=== PATIENT | female | born 1935 | race Caucasian/White ===

== ENCOUNTER 2024-01-01 13:19 | Inpatient (IN) | payer MEDICARE, MEDICAID, SELFPAY ==
[2024-01-01] VITALS (47 sets, daily range): BP systolic 100–147; BP diastolic 58–84; PULSE 60–89; RESP 15–25; TEMP 36.8–37.1; O2SAT 93–100; BMI 21.6
--- NOTE | ~2024-01-01 | US_ITS ---
US venous doppler [facility] DATE: 01/04/2024 11:43 INDICATION: Left leg swelling and pain TECHNIQUE: Real-time and color flow imaging and Doppler analysis of the veins of both lower extremiti es COMPARISON: None FINDINGS: Right lower extremity The right greater saphenous vein and the right common femoral, femoral, popliteal and posterior and t ibial veins are patent, with spontaneous and phasic flow, normal augmentation and compression. Left lower extremity: There is extensive thrombosis of the left common femoral, femoral, popliteal and posterior tibial and peroneal veins. IMPRESSION: Extensive deep venous thrombosis of the left lower extremity Reviewed, dictated and finalized at [facility]. Reviewed, dictated and finalized at location A.
--- NOTE | ~2024-01-01 | CT_ITS ---
EXAMINATION: CT abdomen pelvis w con DATE: 01/01/2024 17:03 INDICATION: generalized abd pain, diarrhea/ ? bloody TECHNIQUE: Computed tomography (CT) of the abdomen and pelvis was performed with 100 mL Omnipaque-350 intravenous contrast. Automated exposure control and iterative reconstruction technique were employe d. The dose-length product was 203.23 mGy-cm. COMPARISON: 10/25/2017. FINDINGS: Lower thorax: Pulmonary granulomas. Bibasilar scarring. Emphysematous/senescent change. Mitral and co ronary artery calcifications. Liver: Normal. Biliary/Gallbladder: Gallbladder is absent. No bile duct dilation. Pancreas: Mild atrophy. Mildly prominent ducts which is stable finding. No mass. Spleen: Normal. Adrenals:No mass. Kidneys: No suspicious mass, obstructing stone, or hydronephrosis. Bilateral simple cysts and subcent imeter hypodensities that are too small to characterize but also likely represent cysts. GI tract: Moderate distal esophageal and gastric wall edema. No small or large bowel dilation. Normal appendix. Mesentery/Peritoneum: No ascites, mass, or free air. Retroperitoneum: No mass. Atherosclerotic abdominal aortic and/or arterial calcifications. Pelvis: Mild urinary bladder wall thickening. Absent uterus. Soft Tissues: Soft tissues and body wall unremarkable. Bones: No acute osseous finding. IMPRESSION: Moderate esophagitis/gastritis. Bladder wall thickening as can be seen with cystitis. Correlate with urinalysis. Reviewed, dictated and finalized at location [facility]. IMPRESSION: Moderate esophagitis/gastritis. Bladder wall thickening as can be seen with cystitis. Correlate with urinalysis .
--- NOTE | ~2024-01-01 | XR_ITS ---
EXAMINATION: XR chest 1V portable Exam Date/Time: 01/01/2024 16:40 CDT HISTORY: ftt, ams Comparison: None. RESULT: Lines, tubes, and devices: None. Lungs and pleura: Senescent/emphysematous change. Right lower lung calcified granuloma. Cardiomediastinal silhouette: Atherosclerotic aortic calcifications. Significant aortic unfolding. E levated cardiac apex which can be seen with hypertension. Other: No acute osseous or upper abdominal finding. IMPRESSION: No acute cardiopulmonary process. Reviewed, dictated and finalized at location [facility].
--- NOTE | ~2024-01-01 | CT_ITS ---
EXAMINATION: CT brain wo con DATE: 01/01/2024 18:40 INDICATION: ams . TECHNIQUE: Computed tomography (CT) of the head was performed without intravenous contrast. The mA wa s adjusted according to patient size. Iterative reconstruction technique was employed. The dose-lengt h product was 756.67 mGy-cm. COMPARISON: None. FINDINGS: No acute intracranial hemorrhage or extra-axial fluid collection. No hydrocephalus, mass, or herniation. No acute ischemic infarct. Unremarkable dural venous sinus attenuation. No acute osseous abnormality. The aerated spaces are clear. Moderate atrophy and chronic white matter change. Atherosclerotic intracranial calcification. Bilater al lens replacements. Residual contrast enhancement. IMPRESSION: No acute intracranial process. Reviewed, dictated and finalized at location [facility].
--- NOTE | 2024-01-01 13:28 | ECG_ITS ---
Measurements Intervals [place] Rate: 73 P: -29 LA: 128 QRS: -59 QRSD: 85 T: 53 QT: 400 QTc: 442 Interpretive Statements SINUS RHYTHM LEFT AXIS DEVIATION INFERIOR INFARCT, AGE INDETERMINATE BASELINE ARTIFACT- I, III, AVR, AVL ABNORMAL ECG NO PREVIOUS ECG AVAILABLE FOR COMPARISON Electronically Signed On 01-01-2024 13:42:06 CDT by Nasir Kessler D.O.
[2024-01-01 14:01] LABS: Basophils Absolute Auto 0.1 K/mm3 (0.0-0.1); Basophils Percent Auto 0.6 % (0.2-1.2); Eosinophils Absolute Auto 0.1 K/mm3 (0-0.3); Hematocrit 49.4 % (37.0-47.0); Immature Granulocyte Absolute 0.03 K/mm3 (0.00-0.031); Immature Granulocyte Percent A 0.3 % (0-0.5); Lymphocytes Absolute Auto 1.78 K/mm3 (0.9-3.2); Lymphocytes Percent Auto 17.6 % (18.3-44.2); Mean Corpuscular HGB Conc 32.4 g/dl (32-36); Mean Corpuscular Hemoglobin 29.9 pg (26-34); Mean Corpuscular Volume 92.3 fl (80-100); Mean Platelet Volume 9.7 fl (7.4-10.4); Monocytes Absolute Auto 0.8 K/mm3 (0.1-0.6); Monocytes Percent Auto 7.5 % (2.6-8.5); Neutrophils Absolute Auto 7.4 K/mm3 (1.3-6.7); Platelet Count Result 230 k/mm3 (150-375); Red Blood Count 5.35 M/mm3 (4.2-5.4); Red Cell Distribution Width 14.9 % (11.5-14.5); White Blood Count 10.1 K/mm3 (4.5-10.0)
[2024-01-01 14:04] LABS: INR 1.2; Partial Thromboplastin Time 28.1 Seconds (22.3-36.8); Prothrombin Time 15.5 Seconds (11.1-14.7)
[2024-01-01 14:05] LABS: Alanine Aminotransferase 14 U/L (6-35); Albumin Level 4.1 g/dL (3.5-5.1); Alkaline Phosphatase 76 U/L (38-126); Anion Gap 9 mmol/L (4-12); Aspartate Amino Transferase 22 U/L (14-36); Blood Urea Nitrogen 53 mg/dL (7-17); Calcium 9.2 mg/dL (8.4-10.2); Carbon Dioxide 29 mmol/L (22-30); Chloride 93 mmol/L (98-107); Estimated CRCL calculation 29 ml/min; Estimated Glomerular Filt Rate 52; Glucose 109 mg/dL (65-110); Potassium 3.4 mmol/L (3.4-5.0); Sodium 131 mmol/L (137-145)
[2024-01-01 14:21] LABS: Appearance Urine Clear (Clear); Bacteria Urine None Seen /hpf; Bilirubin Urine Negative (Negative); Blood Urine Negative (Negative); Color Urine Dark Yellow (Yellow); Glucose Urine UA Negative (Negative); Ketones Urine 1+ mg/dL (Negative); Leukocyte Esterase Ur 2+ LEU/UL (Negative); Nitrate Urine Negative (Negative); Protein Urine Negative (Negative); RBC Urine 0-2 /hpf (0-2); Specific Grav Ur 1.021 (1.001-1.035); Squamous Epithelial Cell Urine None Seen /hpf (Few); WBC Urine 21-50 /hpf (0-3)
[2024-01-01 14:35] LABS: Add Urine Microscopic? YES
--- NOTE | 2024-01-01 16:29 | ED.AMS ---
HPI - Altered Mental Status General Chief Complaint: Altered Mental Status Stated Complaint: Altered Mental x2 Weeks Time Seen by Provider: 01/01/24 15:48 Source: patient and family ( Son Janes and daughter Kailey) Limitations: altered mental status History of Present Illness HPI narrative: This an 88-year-old female who presents with concern by family for altered mental status for the past 2 weeks. Patient lives by herself and previously had been independent of ADLs. The past 2 weeks however she has become more confused Per son and daughter. Daughter states patient has been unable to get around in the last several days because of the extreme generalized weakness. She has had decreased p.o. intake as well. Patient previously never ambulated with an assistive device but patient's daughter did purchase a walker from a [employer] store earlier this week to see if it would help; patient hasn't used it. patient had 2 episodes of diarrhea this morning and daughter states that there was dark blood in the stool. No cough. She is also complaining of back pain. Related Data Allergies Allergy/AdvReac Type Severity Reaction Status Date / Time Penicillins Allergy Severe hives Verified 01/01/24 13:27 codeine AdvReac Unknown nausea Verified 01/01/24 13:27 [facility] Social History Social History (Updated 01/01/24 @ 20:34 by Meredith Martinez MD) Living arrangements: alone Exam Narrative: GENERAL: Well-appearing, well-nourished, and in no acute distress. HEAD: Normocephalic, atraumatic. EYES: Non injected, non icteric ENT: Nares clear, no rhinorrhea or epistaxis. BACK: No tenderness to palpation midline of cervical, thoracic, or lumbar spine; no bony step offs. NECK: Supple. CHEST: No respiratory distress. HEART: Regular rate and rhythm. . ABDOMEN: Soft, nondistended. Patient initially flinches when touched but states she wasn't prepared. No further indication of pain. No TTP , rigidity/guarding. rectal exam is performed which does demonstrate loose thin stool. There is also some mucosa that appears to be protruding but easily goes back into the vault; suspect mild rectal prolapse versus hemorrhoid. FOBT negative. No masses. EXTREMITIES: No edema. SKIN: Warm, dry, no rash. NEURO: No focal deficits. Alert and oriented To self and location but confused about the year (says 4....24... ) and cannot recall the address where she lives. PSYCH: Normal mood and affect. Course Vital Signs Vital signs: Vital Signs Temperature 98.2 F 01/01/24 13:18 Pulse Rate 68 01/01/24 13:18 Respiratory Rate 16 01/01/24 13:18 Blood Pressure 116/73 01/01/24 13:18 Pulse Oximetry 95 01/01/24 13:18 Oxygen Delivery Room Air 01/01/24 13:18 Temperature 98.2 F 01/01/24 13:18 Pulse Rate 66 01/01/24 20:31 Respiratory Rate 17 01/01/24 20:31 Blood Pressure 109/71 01/01/24 20:30 Pulse Oximetry 95 01/01/24 20:31 Oxygen Delivery Room Air 01/01/24 13:18 MDM - Altered Mental Status MDM Narrative Medical decision making narrative: Patient presents with generalized weakness and altered mental status. She has had an inability to get around her house where she lives by herself. She has a decreased p.o. intake and a few episodes of diarrhea that were possibly bloody earlier. In the emergency department she is afebrile with vital signs within normal limits. Patient is complaining of being thirsty. IV fluids ordered. FOBT negative though with questionable mild protrusion of rectum that easily reinserts, no masses. urinalysis concerning for a possible urinary tract infection given pyuria and leukocyte esterase positive. Antibiotics ordered. Rest of workup is generally unremarkable however patient and family are still concerned about her degree of weakness and inability to get around at home. Patient will benefit from PT/ OT evaluation with consideration of possible placement for a safe disposition/dis
[2024-01-01 17:14] LABS: Creatine Kinase 41 U/L (30-135); Magnesium 2.5 mg/dL (1.6-2.3)
[2024-01-01 17:28] LABS: Influenza A QL RT-PCR Negative (Negative); Influenza B QL RT-PCR Negative (Negative); RSV RNA, RT-PCR Negative (Negative); SARS-CoV-2 RNA PCR Negative (Negative)
[2024-01-01] MEDS: SODIUM CHLORIDE 0.9% IV 1,000 ML 999 ML IV CONT (17:31)
[2024-01-01] MEDS: NITROFURANTOIN MONOHYD MACROCR 100 MG CAP PO (17:31)
[2024-01-01] MEDS: ACETAMINOPHEN 500 MG TABLET 1000 MG PO (17:31)
--- NOTE | 2024-01-01 21:20 | ADMGEN ---
This patient, Gela Sampson, was admitted to Medical Room 342-01. Patient/family oriented to hospital policies and general routines including ID bracelet, bed and alarms, visiting hours, pain management, procedures, bathroom and other care routines, personal items, smoking policy, room service/diet, and visiting hours. Information on how to activate the Rapid Response Team has been discussed. Patient/Family are encouraged to report perceived risks to care and to ask questions if they do not understand what they are told or what they should do.
--- NOTE | 2024-01-01 21:48 | PC.NURSE ---
COMPLETED PT ADMISSION TO BEST OF MY ABILITY. PT IS POOR HISTORIAN AND FAMILY DOES NOT KNOW ANYTHING ABOUT PT MEDICAL HISTORY OR MEDIATIONS.
[2024-01-01] MEDS: LACTATED RINGERS 1,000 ML 125 ML IV CONT (22:15)
[2024-01-02] MEDS: ACETAMINOPHEN 325 MG TABLET 650 MG PO (03:24)
--- NOTE | 2024-01-02 05:48 | PM.IMHP ---
H&P: HPI History of Present Illness Date/Time: 01/02/24 05:48 Chief Complaint: Increased weakness and confusion Narrative: 88-year-old female with a past medical history of dementia who presented to hospital from home in the care of her family members who was brought in for increased confusion and weakness for the last 2 weeks. At the time of my evaluation the patient was able to tell me her name and that she thought she was in [facility]. Otherwise she is completely confused and thought the year was 1973. She is able to tell me that clearly her mind isn't working await should but she cannot give me any other details. She denies any other symptoms. She states that she must have had a really bad illness that was worse than a cold that happened last night but it must of resolved because she feels much better. She is fluent and conversational despite being confused. according to the ER physicians documentation the patient had been independent in all her activities of daily living until the last 2 weeks. Now over the last several days she has become so weak that she has been having difficulty ambulating. the daughter had reported to the ER staff that the patient had had 2 diarrheal bowel movements that were dark in color in may have had some blood mixed in. However patient's occult stool on rectal exam was negative for blood. The ER provider did note that the patient did have a small amount of rectal prolapse at the time of exam. CT of the abdomen pelvis demonstrated moderate esophagitis/ gastritis and bladder wall thickening that can be seen was cystitis. CT of the head was negative for acute process. Chest x-ray was unremarkable. Patient did have an elevated hemoglobin and other clinical findings suspicious for dehydration. The patient was admitted in this setting for IV fluid hydration and physical therapy evaluation. Unfortunately the patient is so confused that she cannot provide any of her past medical history in the family does not know the patient's past medical history and does not know if patient had any home medications. External medication reconciliation was blank. Review of Systems Review of Systems: ROS unobtainable: Yes unobtainable due to mental status PMFSH Past Medical History Medical History (Updated 01/02/24 @ 16:00 by Madalyn Ma APRN) Medical history unknown Surgical History Surgical History (Updated 01/02/24 @ 08:46 by Taylor Byrd DO) Surgical history unknown Family History Family History (Updated 01/01/24 @ 21:51 by Juani Brown RN) Other Unknown family medical history Social History Social History (Updated 01/01/24 @ 20:34 by Meredith Martinez MD) Smoking status: Former smoker Alcohol intake: never Substance use: never Do You Feel Safe in your Home?: Yes Lack of Transportation: No Lack of Food: Never True Current Housing: I Have Housing Concerned About Future Housing: No Difficulty Paying Gas/Electric Bills: No Difficulty Paying for Meds: No Currently Unemployed: No Education: High School Diploma/GED Difficulty w/ Childcare or Family Care: No Living arrangements: alone Spiritual care concerns: No Meds Home Medications and Allergies Home Medications Medication Instructions Recorded Confirmed Type acetaminophen 325 mg capsule 650 mg PO Q4H 01/01/24 01/01/24 History (Tylenol) Allergies Allergy/AdvReac Type Severity Reaction Status Date / Time Penicillins Allergy Severe hives Verified 01/01/24 13:27 codeine AdvReac Unknown nausea Verified 01/01/24 13:27 Vital Signs Vital Signs - 24 hr 01/01/24 13:18 01/01/24 13:26 01/01/24 13:27 Temperature 98.2 F Pulse Rate 68 70 73 Respiratory Rate 16 18 17 Blood Pressure 116/73 116/73 Pulse Oximetry 95 95 97 Oxygen Delivery Room Air 01/01/24 13:30 01/01/24 13:32 01/01/24 13:45 Temperature Pulse Rate 74 77 74 Respiratory Rate 19 25
[2024-01-02 06:00] VITALS: BP 110/60; PULSE 63; RESP 20; TEMP 36.6; O2SAT 98
[2024-01-02] MEDS: LACTATED RINGERS 1,000 ML 125 ML IV CONT (06:57)
[2024-01-02 08:25] LABS: Basophils Absolute Auto 0.1 K/mm3 (0.0-0.1); Basophils Percent Auto 0.9 % (0.2-1.2); Eosinophils Absolute Auto 0.2 K/mm3 (0-0.3); Eosinophils Percent Auto 2.7 % (0-4.4); Hematocrit 45.4 % (37.0-47.0); Hemoglobin 14.4 g/dL (12.0-15.0); Immature Granulocyte Absolute 0.04 K/mm3 (0.00-0.031); Immature Granulocyte Percent A 0.5 % (0-0.5); Immature Platelet Fraction Pct 4.2 % (0.9-11.2); Lymphocytes Absolute Auto 1.38 K/mm3 (0.9-3.2); Lymphocytes Percent Auto 17.1 % (18.3-44.2); Mean Corpuscular HGB Conc 31.7 g/dl (32-36); Mean Corpuscular Hemoglobin 30.1 pg (26-34); Mean Corpuscular Volume 94.8 fl (80-100); Mean Platelet Volume 9.8 fl (7.4-10.4); Monocytes Absolute Auto 0.7 K/mm3 (0.1-0.6); Monocytes Percent Auto 8.7 % (2.6-8.5); Neutrophils Absolute Auto 5.7 K/mm3 (1.3-6.7); Neutrophils Percent Auto 70.1 % (45.5-73.1); Platelet Count Result 170 k/mm3 (150-375); Red Blood Count 4.79 M/mm3 (4.2-5.4); Red Cell Distribution Width 14.7 % (11.5-14.5); White Blood Count 8.1 K/mm3 (4.5-10.0)
[2024-01-02 08:44] LABS: Anion Gap 5 mmol/L (4-12); Blood Urea Nitrogen 36 mg/dL (7-17); Calcium 8.4 mg/dL (8.4-10.2); Carbon Dioxide 30 mmol/L (22-30); Chloride 95 mmol/L (98-107); Estimated CRCL calculation 40 ml/min; Estimated Glomerular Filt Rate > 60; Glucose 92 mg/dL (65-110); Potassium 3.7 mmol/L (3.4-5.0); Sodium 130 mmol/L (137-145)
[2024-01-02 13:00] VITALS: BMI 21.6
[2024-01-02 15:22] VITALS: BP 128/80; PULSE 76; RESP 19; TEMP 36.8; O2SAT 97
--- NOTE | 2024-01-02 15:57 | PM.IMPN ---
Progress Note: A&P Assessment and Plan (1) Esophagitis with gastritis: Code(s): K29.70 - Gastritis, unspecified, without bleeding; K20.90 - Esophagitis, unspecified without bleeding Status: Acute Assessment and Plan: patient reports 2 bouts of diarrhea at home will order stool sample if continues IVF PRN antiemetics (2) Elevated hemoglobin: Code(s): D58.2 - Other hemoglobinopathies Status: Acute (3) Abnormal finding on urinalysis: Code(s): R82.90 - Unspecified abnormal findings in urine Status: Acute Assessment and Plan: minimal leukocytosis with leukocyte esterase and elevated wbc's in her urine UA culture pending Macrobid PO due to PCN allergy (4) Confusion: Code(s): R41.0 - Disorientation, unspecified Status: Chronic Assessment and Plan: known dementia head CT negative for acute process (5) Generalized weakness: Code(s): R53.1 - Weakness Status: Acute Assessment and Plan: CXR negative mildly low serum sodium possibly dehydration, IVF PT/OT ordered for evaluation Subjective Date/time seen: 01/02/24 15:57 Interval history: Patient is pleasantly confused this morning. Alert to self only, in no acute distress. She cannot tell me why she is here. She denies any pain, chest pain or SOB. Will treat for UTI while care coordination speaks with family. Patient may need placement, PT/OT evals ordered. Review of Systems Review of Systems: ROS unobtainable: Yes unobtainable due to mental status Exam Narrative: GENERAL: Well-appearing, well-nourished, and in no acute distress. HEAD: Normocephalic, atraumatic. EYES: PERRLA, EOMI NECK: Supple. CHEST: Lungs clear to auscultation, No respiratory distress. HEART: RRR ABDOMEN: Soft, nondistended, non-tender. BS present. EXTREMITIES: No edema. SKIN: Warm, dry, no rash. NEURO: No focal deficits. Alert and oriented x1 PSYCH: Normal mood and affect. Objective Data Vital Signs Vital Signs: Vital Signs - 24 hr 01/01/24 16:06 01/01/24 16:15 01/01/24 16:16 Temperature Pulse Rate 89 Respiratory Rate 18 Blood Pressure 101/58 L 120/69 Pulse Oximetry 93 95 93 Oxygen Delivery 01/01/24 16:30 01/01/24 16:31 01/01/24 17:02 Temperature Pulse Rate 81 81 81 Respiratory Rate 19 15 21 H Blood Pressure 115/65 Pulse Oximetry 93 94 98 Oxygen Delivery 01/01/24 17:15 01/01/24 17:30 01/01/24 17:35 Temperature Pulse Rate 71 74 77 Respiratory Rate 18 16 19 Blood Pressure 119/78 Pulse Oximetry 96 96 Oxygen Delivery 01/01/24 17:45 01/01/24 17:46 01/01/24 18:00 Temperature Pulse Rate 68 68 66 Respiratory Rate 17 22 H 19 Blood Pressure 115/70 Pulse Oximetry 97 96 96 Oxygen Delivery 01/01/24 18:01 01/01/24 18:15 01/01/24 18:16 Temperature Pulse Rate 65 64 75 Respiratory Rate 18 18 18 Blood Pressure 105/71 115/70 Pulse Oximetry 96 95 96 Oxygen Delivery 01/01/24 18:38 01/01/24 18:45 01/01/24 19:00 Temperature Pulse Rate 75 68 67 Respiratory Rate 17 18 17 Blood Pressure Pulse Oximetry 95 96 97 Oxygen Delivery 01/01/24 19:15 01/01/24 19:35 01/01/24 19:45 Temperature Pulse Rate 71 65 63 Respiratory Rate 22 H 18 19 Blood Pressure 103/63 103/58 L Pulse Oximetry 98 97 Oxygen Delivery 01/01/24 20:16 01/01/24 20:30 01/01/24 20:31 Temperature Pulse Rate 60 68 66 Respiratory Rate 17 20 17 Blood Pressure 115/70 109/71 Pulse Oximetry 100 96 95 Oxygen Delivery 01/01/24 22:00 01/02/24 06:00 01/02/24 13:37 Temperature 98.7 F 97.9 F Pulse Rate 70 63 Respiratory Rate 20 20 Blood Pressure 147/78 H 110/60 Pulse Oximetry 96 98 Oxygen Delivery Room Air 01/02/24 15:22 Temperature 98.3 F Pulse Rate 76 Respiratory Rate 19 Blood Pressure 128/80 Pulse Oximetry 97 Oxygen Delivery Intake/Output Intake/Output: Intake & Output 12/30/23 12/31/23
[2024-01-02] MEDS: NITROFURANTOIN MONOHYD MACROCR 100 MG CAP PO (21:35)
[2024-01-02 22:40] VITALS: BP 130/86; PULSE 75; RESP 20; TEMP 36.4; O2SAT 98
[2024-01-03] MEDS: LACTATED RINGERS 1,000 ML 125 ML IV CONT (02:35)
[2024-01-03 06:00] VITALS: BP 141/89; PULSE 89; RESP 16; TEMP 36.3; O2SAT 95
[2024-01-03 06:14] LABS: Basophils Percent Auto 0.4 % (0.2-1.2); Eosinophils Absolute Auto 0.2 K/mm3 (0-0.3); Eosinophils Percent Auto 1.9 % (0-4.4); Hematocrit 46.1 % (37.0-47.0); Hemoglobin 14.7 g/dL (12.0-15.0); Immature Granulocyte Absolute 0.03 K/mm3 (0.00-0.031); Immature Granulocyte Percent A 0.3 % (0-0.5); Lymphocytes Absolute Auto 1.34 K/mm3 (0.9-3.2); Lymphocytes Percent Auto 14.5 % (18.3-44.2); Mean Corpuscular HGB Conc 31.9 g/dl (32-36); Mean Corpuscular Hemoglobin 29.8 pg (26-34); Mean Corpuscular Volume 93.3 fl (80-100); Mean Platelet Volume 9.7 fl (7.4-10.4); Monocytes Absolute Auto 0.8 K/mm3 (0.1-0.6); Monocytes Percent Auto 8.6 % (2.6-8.5); Neutrophils Absolute Auto 6.9 K/mm3 (1.3-6.7); Neutrophils Percent Auto 74.3 % (45.5-73.1); Platelet Count Result 149 k/mm3 (150-375); Red Blood Count 4.94 M/mm3 (4.2-5.4); Red Cell Distribution Width 14.6 % (11.5-14.5); White Blood Count 9.3 K/mm3 (4.5-10.0)
[2024-01-03 06:36] LABS: Anion Gap 5 mmol/L (4-12); Blood Urea Nitrogen 17 mg/dL (7-17); Calcium 8.4 mg/dL (8.4-10.2); Carbon Dioxide 28 mmol/L (22-30); Chloride 97 mmol/L (98-107); Estimated CRCL calculation 46 ml/min; Estimated Glomerular Filt Rate > 60; Glucose 98 mg/dL (65-110); Potassium 2.9 mmol/L (3.4-5.0); Sodium 130 mmol/L (137-145)
[2024-01-03] MEDS: NITROFURANTOIN MONOHYD MACROCR 100 MG CAP PO ×2 (09:32→20:39)
--- NOTE | 2024-01-03 12:57 | PM.IMPN ---
Progress Note: A&P Assessment and Plan (1) Confusion: Code(s): R41.0 - Disorientation, unspecified Status: Chronic Assessment and Plan: 01/03/2024: Head CT negative for any acute intracranial process Patient has underlying dementia Continue neuro checks (2) Hyponatremia: Code(s): E87.1 - Hypo-osmolality and hyponatremia Status: Acute Assessment and Plan: 01/03/2024: Sodium level currently is 130 The low sodium could potentially be the cause of her altered mental status Can be due to tea and toast versus hypovolemia from diarrhea Will put patient on fluid restriction of 1500 ml per day Discontinue LR IV fluids Will check urine sodium, urine osmolarity, serum osmolarity, and cortisol Continue to trend Consider nephrology consult sodium level does not improve (3) Left leg swelling: Code(s): M79.89 - Other specified soft tissue disorders Status: Acute Assessment and Plan: 01/03/2024: Patient complaining of pain and the back of her left calf, there is notable 2+ pitting edema to lower extremity Order placed for bilateral venous ultrasound to rule out DVT Patient is not currently on any anticoagulation (4) Esophagitis with gastritis: Code(s): K29.70 - Gastritis, unspecified, without bleeding; K20.90 - Esophagitis, unspecified without bleeding Status: Acute Assessment and Plan: 12/24/2023: CT of abdomen pelvis showing moderate esophagitis/gastritis, bladder wall thickening as can be seen with cystitis Continue antiemetics Patient reported 2 bouts of diarrhea at home (5) Diarrhea: Qualifiers: Diarrhea type: unspecified type Qualified Code(s): R19.7 - Diarrhea, unspecified Code(s): R19.7 - Diarrhea, unspecified Status: Acute Assessment and Plan: See above (6) Abnormal finding on urinalysis: Code(s): R82.90 - Unspecified abnormal findings in urine Status: Acute Assessment and Plan: 01/03/2024: UA showing 1+ ketones, 2+ leukocytes, 21-50 urine wbc's Urine culture was negative on final read (7) Generalized weakness: Code(s): R53.1 - Weakness Status: Acute Assessment and Plan: 01/03/2024: Will order PT and OT Time Spent With Patient Time with patient: 25 - 35 minutes Subjective Date/time seen: 01/03/24 12:57 Interval history: This is an 88-year-old female who presented to the hospital on 01/02/2024 for evaluation of weakness and confusion. Workup in the hospital included a chest x-ray which was negative. Abdomen pelvis CT which showed moderate esophagitis/gastritis, bladder wall thickening as seen with cystitis. Head CT was negative for any acute intracranial process. Initial labs revealed white blood cell count of 10.1, sodium 131, chloride 93, EGFR 52, magnesium 2.5, total bili 2.0, liver enzymes were normal. UA was obtained and showed 1+ urine ketones, 2+ leukocyte, 21-50 urine wbc's. Urine culture was obtained and was negative on final read. Patient was given Zofran and Tylenol in the ED. On examination today patient is confused, sitting on the side of the bed. Patient endorses pain and swelling in her left lower extremity. On exam her left lower extremity is swollen with 2+ pitting edema, she is complaining of pain in the back of her calf. We will go ahead and get an ultrasound of her lower extremities to rule out any DVT. Labs today revealed showing sodium of 130, potassium of 2.9, chloride 97, otherwise unremarkable. Patient was given 80 mEq of potassium over the course of today. Review of Systems Review of Systems: All systems reviewed & are unremarkable except as noted in HPI and below Constitutional: Constitutional: Reports as per HPI and Reports no additional constitutional complaints Eyes: Eyes: Reports as per HPI and Reports no additional eye complaints ENT: Reports system reviewed and no additional complaints, except as documented and Re
[2024-01-03 14:00] VITALS: BP 134/71; PULSE 85; RESP 16; TEMP 37; O2SAT 95
--- NOTE | 2024-01-03 14:58 | PCPTNOTE ---
Treatment not completed at this time. Per RN, the patient has swelling in her lower extremity and she thinks it would be best to keep her in bed at this time. Will continue per PT plan of care.
[2024-01-03] MEDS: POTASSIUM CHLORIDE 20 MEQ ER TABLET 40 MEQ PO (16:51)
[2024-01-03 19:21] LABS: Sodium Urine Random 16 meq/L
[2024-01-03] MEDS: POTASSIUM CHLORIDE 20 MEQ PACKET (FOR LIQUID) 40 MEQ PO (20:40)
[2024-01-03 20:58] VITALS: BP 153/76; PULSE 79; RESP 18; TEMP 36.9; O2SAT 95
[2024-01-03] MEDS: ACETAMINOPHEN 325 MG TABLET 650 MG PO (23:53)
[2024-01-04] MEDS: ACETAMINOPHEN 325 MG TABLET 650 MG PO (05:32)
[2024-01-04 06:49] VITALS: BP 148/73; PULSE 81; RESP 20; TEMP 36.8; O2SAT 98
[2024-01-04 09:21] LABS: Hematocrit 44.6 % (37.0-47.0); Hemoglobin 14.4 g/dL (12.0-15.0); Mean Corpuscular HGB Conc 32.3 g/dl (32-36); Mean Corpuscular Volume 92.9 fl (80-100); Mean Platelet Volume 9.9 fl (7.4-10.4); Platelet Count Result 144 k/mm3 (150-375); Red Cell Distribution Width 14.7 % (11.5-14.5); White Blood Count 7.6 K/mm3 (4.5-10.0)
[2024-01-04 09:31] LABS: Alanine Aminotransferase 13 U/L (6-35); Albumin Level 3.3 g/dL (3.5-5.1); Alkaline Phosphatase 62 U/L (38-126); Anion Gap 1 mmol/L (4-12); Aspartate Amino Transferase 20 U/L (14-36); Blood Urea Nitrogen 13 mg/dL (7-17); Calcium 8.4 mg/dL (8.4-10.2); Carbon Dioxide 35 mmol/L (22-30); Chloride 95 mmol/L (98-107); Estimated CRCL calculation 46 ml/min; Estimated Glomerular Filt Rate > 60; Glucose 103 mg/dL (65-110); Potassium 3.1 mmol/L (3.4-5.0); Sodium 131 mmol/L (137-145)
[2024-01-04] MEDS: APIXABAN 5 MG TABLET 10 MG PO (10:10)
[2024-01-04] MEDS: NITROFURANTOIN MONOHYD MACROCR 100 MG CAP PO ×2 (10:10→21:16)
[2024-01-04] MEDS: POTASSIUM CHLORIDE 20 MEQ PACKET (FOR LIQUID) 40 MEQ PO (11:26)
--- NOTE | 2024-01-04 11:28 | PM.IMPN ---
Progress Note: A&P Assessment and Plan (1) Deep vein thrombosis (DVT) of femoral vein of left lower extremity: Code(s): I82.412 - Acute embolism and thrombosis of left femoral vein Status: Acute Assessment and Plan: 01/03: Noted left lower extremity swelling ultrasound was ordered yesterday but not obtained. This morning nursing staff stated this was worse. Initiated patient on Eliquis 10 mg twice daily expecting ultrasound tomorrow. However, ultrasound was completed showing extensive clot burden left lower extremity from the common femoral down through the popliteal, posterior tibialis and peroneal veins. Discussed with Dr. Painting and since patient can be on anticoagulation IVC filter is not recommended at this time. (2) Hypokalemia: Code(s): E87.6 - Hypokalemia Status: Acute Assessment and Plan: Potassium level continues to decline were stable low even after significant supplementation. Level again today is 3.1. Ordered 40 mEq oral and 40 mEq IV. (3) Confusion: Code(s): R41.0 - Disorientation, unspecified Status: Chronic Assessment and Plan: 01/03/2024: Head CT negative for any acute intracranial process Patient has underlying dementia Continue neuro checks 01/03: Confusion seems to be baseline??? Known underlying dementia. Seems less confused with family present. (4) Hyponatremia: Code(s): E87.1 - Hypo-osmolality and hyponatremia Status: Acute Assessment and Plan: 01/03/2024: Sodium level currently is 130 The low sodium could potentially be the cause of her altered mental status Can be due to tea and toast versus hypovolemia from diarrhea Will put patient on fluid restriction of 1500 ml per day Discontinue LR IV fluids Will check urine sodium, urine osmolarity, serum osmolarity, and cortisol Continue to trend Consider nephrology consult sodium level does not improve 01/03: Stable sodium level 131 today (5) Esophagitis with gastritis: Code(s): K29.70 - Gastritis, unspecified, without bleeding; K20.90 - Esophagitis, unspecified without bleeding Status: Acute Assessment and Plan: 01/03/2024: CT of abdomen pelvis showing moderate esophagitis/gastritis, bladder wall thickening as can be seen with cystitis Continue antiemetics Patient reported 2 bouts of diarrhea at home 01/03: No signs of GI bleeding at this time. Initiate anti coagulation for left lower extremity DVT (6) Diarrhea: Qualifiers: Diarrhea type: unspecified type Qualified Code(s): R19.7 - Diarrhea, unspecified Code(s): R19.7 - Diarrhea, unspecified Status: Acute Assessment and Plan: See above (7) Abnormal finding on urinalysis: Code(s): R82.90 - Unspecified abnormal findings in urine Status: Acute Assessment and Plan: 01/03/2024: UA showing 1+ ketones, 2+ leukocytes, 21-50 urine wbc's Urine culture was negative on final read 01/03: Though culture was negative patient's UA was convincing for UTI and she had confusion that is seems to be improving after antibiotics. (8) Generalized weakness: Code(s): R53.1 - Weakness Status: Acute Assessment and Plan: 01/03/2024: Will order PT and OT Time Spent With Patient Time with patient: Greater than 35 minutes Subjective Date/time seen: 01/04/24 11:28 Interval history: 01/02: This is an 88-year-old female who presented to the hospital on 01/02/2024 for evaluation of weakness and confusion. Workup in the hospital included a chest x-ray which was negative. Abdomen pelvis CT which showed moderate esophagitis/gastritis, bladder wall thickening as seen with cystitis. Head CT was negative for any acute intracranial process. Initial labs revealed white blood cell count of 10.1, sodium 131, chloride 93, EGFR 52, magnesium 2.5, total bili 2.0, liver enzymes were normal. UA was obtained and showed 1+ urine ketones, 2+ leukocyte, 21-5
[2024-01-04 12:24] VITALS: O2SAT 97
--- NOTE | 2024-01-04 14:45 | PCOTNOTE ---
Pt is not appropriate for Occupational Therapy treatment today due to recent DVT finding of LLE and has not been on heparin drip for 24 hrs yet. Will continue per poc duration/frequency when medically appropriate.
[2024-01-04 14:55] VITALS: BP 123/68; PULSE 74; RESP 16; TEMP 36.1; O2SAT 97
--- NOTE | 2024-01-04 14:55 | PCPTNOTE ---
Treatment not completed at this time due to recent DVT finding of the left LE. Will continue per PT plan of care when appropriate.
[2024-01-04 17:24] LABS: Basophils Percent Auto 0.5 % (0.2-1.2); Eosinophils Absolute Auto 0.2 K/mm3 (0-0.3); Eosinophils Percent Auto 2.8 % (0-4.4); Hematocrit 43.8 % (37.0-47.0); Hemoglobin 14.1 g/dL (12.0-15.0); Immature Granulocyte Absolute 0.03 K/mm3 (0.00-0.031); Immature Granulocyte Percent A 0.4 % (0-0.5); Lymphocytes Absolute Auto 1.38 K/mm3 (0.9-3.2); Lymphocytes Percent Auto 17.4 % (18.3-44.2); Mean Corpuscular HGB Conc 32.2 g/dl (32-36); Mean Corpuscular Hemoglobin 29.6 pg (26-34); Mean Platelet Volume 9.7 fl (7.4-10.4); Monocytes Absolute Auto 0.6 K/mm3 (0.1-0.6); Monocytes Percent Auto 7.7 % (2.6-8.5); Neutrophils Absolute Auto 5.7 K/mm3 (1.3-6.7); Neutrophils Percent Auto 71.2 % (45.5-73.1); Platelet Count Result 144 k/mm3 (150-375); Red Blood Count 4.76 M/mm3 (4.2-5.4); Red Cell Distribution Width 14.8 % (11.5-14.5); White Blood Count 7.9 K/mm3 (4.5-10.0)
[2024-01-04 17:37] LABS: INR 1.3
[2024-01-04 17:38] LABS: Partial Thromboplastin Time 36.1 Seconds (22.3-36.8)
[2024-01-04] MEDS: HEPARIN SODIUM 5,000 UNITS/ML VIAL 4500 UNITS IV PUSH (17:53)
[2024-01-04] MEDS: HEPARIN SOD/D5W 100 UNITS/ML 25,000 UNITS/250 ML BAG 10 UNITS IV CONT (17:57)
[2024-01-04 19:57] VITALS: BP 126/77; PULSE 81; RESP 20; TEMP 36.3; O2SAT 97
[2024-01-04 20:00] VITALS: PULSE 81; RESP 20; O2SAT 97
[2024-01-05 00:49] LABS: Partial Thromboplastin Time 75.8 Seconds (22.3-36.8)
[2024-01-05] MEDS: ACETAMINOPHEN 325 MG TABLET 650 MG PO ×2 (02:35→21:08)
[2024-01-05 06:17] LABS: Hematocrit 43.9 % (37.0-47.0); Hemoglobin 14.1 g/dL (12.0-15.0); Mean Corpuscular HGB Conc 32.1 g/dl (32-36); Mean Corpuscular Hemoglobin 29.9 pg (26-34); Mean Corpuscular Volume 93.2 fl (80-100); Mean Platelet Volume 10.1 fl (7.4-10.4); Platelet Count Result 184 k/mm3 (150-375); Red Blood Count 4.71 M/mm3 (4.2-5.4); Red Cell Distribution Width 14.8 % (11.5-14.5); White Blood Count 9.2 K/mm3 (4.5-10.0)
[2024-01-05 06:26] LABS: Alanine Aminotransferase 13 U/L (6-35); Albumin Level 3.2 g/dL (3.5-5.1); Alkaline Phosphatase 71 U/L (38-126); Anion Gap 2 mmol/L (4-12); Aspartate Amino Transferase 22 U/L (14-36); Bilirubin,Total 1.1 mg/dL (0.2-1.3); Blood Urea Nitrogen 9 mg/dL (7-17); Calcium 8.4 mg/dL (8.4-10.2); Carbon Dioxide 30 mmol/L (22-30); Chloride 98 mmol/L (98-107); Estimated CRCL calculation 55 ml/min; Estimated Glomerular Filt Rate > 60; Glucose 116 mg/dL (65-110); Magnesium 1.9 mg/dL (1.6-2.3); Potassium 3.8 mmol/L (3.4-5.0); Sodium 130 mmol/L (137-145)
--- NOTE | 2024-01-05 07:18 | PC.NURSE ---
Pt pulled 3 IV overnight. Dayana. [employer] made aware. No access at this time.
--- NOTE | 2024-01-05 07:35 | P.PNIM_ITS ---
Progress Note: A&P Assessment and Plan (1) Deep vein thrombosis (DVT) of femoral vein of left lower extremity: Code(s): I82.412 - Acute embolism and thrombosis of left femoral vein Status: Acute Assessment and Plan: 01/03: Noted left lower extremity swelling ultrasound was ordered yesterday but not obtained. This morning nursing staff stated this was worse. Initiated patient on Eliquis 10 mg twice daily expecting ultrasound tomorrow. However, ultrasound was completed showing extensive clot burden left lower extremity from the common femoral down through the popliteal, posterior tibialis and peroneal veins. Discussed with Dr. Painting and since patient can be on anticoagulation IVC filter is not recommended at this time. 01/04: * Switching patient to therapeutic Lovenox instead of heparin infusion as patient is still confused and pulled out 3 IV's overnight. * Keep INR between 2-3 * Plan to transition to Eliquis once therapeutic. (2) Hypokalemia: Code(s): E87.6 - Hypokalemia Status: Acute Assessment and Plan: 01/03: Potassium level continues to decline were stable low even after significant supplementation. Level again today is 3.1. Ordered 40 mEq oral and 40 mEq IV. 01/04: * K+ 3.8 * No preplacement required (3) Confusion: Code(s): R41.0 - Disorientation, unspecified Status: Chronic Assessment and Plan: 01/03/2024: * Head CT negative for any acute intracranial process * Patient has underlying dementia * Continue neuro checks 01/03: Confusion seems to be baseline??? Known underlying dementia. Seems less confused with family present. 01/04: * No change * Continue neuro checks. (4) Hyponatremia: Code(s): E87.1 - Hypo-osmolality and hyponatremia Status: Acute Assessment and Plan: 01/03/2024: * Sodium level currently is 130 * The low sodium could potentially be the cause of her altered mental status * Can be due to tea and toast versus hypovolemia from diarrhea * Will put patient on fluid restriction of 1500 ml per day * Discontinue LR IV fluids * Will check urine sodium, urine osmolarity, serum osmolarity, and cortisol * Continue to trend * Consider nephrology consult sodium level does not improve 01/03: Stable sodium level 131 today 01/04: * Na+ 130 * Continue fluid restriction * Urine sodium and serum osmolarity pending. * Cortisol level 17.00 (5) Esophagitis with gastritis: Code(s): K29.70 - Gastritis, unspecified, without bleeding; K20.90 - Esophagitis, unspecified without bleeding Status: Acute Assessment and Plan: 01/03/2024: * CT of abdomen pelvis showing moderate esophagitis/gastritis, bladder wall thickening as can be seen with cystitis * Continue antiemetics * Patient reported 2 bouts of diarrhea at home 01/03: No signs of GI bleeding at this time. Initiate anti coagulation for left lower extremity DVT 01/04: * No change to current treatment plan (6) Diarrhea: Qualifiers: Diarrhea type: unspecified type Qualified Code(s): R19.7 - Diarrhea, unspecified Code(s): R19.7 - Diarrhea, unspecified Status: Acute Assessment and Plan: See above (7) Abnormal finding on urinalysis: Code(s): R82.90 - Unspecified abnormal findings in urine Status: Acute Assessment and Plan: 01/03/2024: * UA showing 1+ ketones, 2+ leukocytes, 21-50 urine wbc's * Urine culture was negative on final read 01/03: Though culture was negative patient's UA was convincing for
--- NOTE | 2024-01-05 07:35 | PM.IMPN ---
Progress Note: A&P Assessment and Plan (1) Deep vein thrombosis (DVT) of femoral vein of left lower extremity: Code(s): I82.412 - Acute embolism and thrombosis of left femoral vein Status: Acute Assessment and Plan: 01/03: Noted left lower extremity swelling ultrasound was ordered yesterday but not obtained. This morning nursing staff stated this was worse. Initiated patient on Eliquis 10 mg twice daily expecting ultrasound tomorrow. However, ultrasound was completed showing extensive clot burden left lower extremity from the common femoral down through the popliteal, posterior tibialis and peroneal veins. Discussed with Dr. Painting and since patient can be on anticoagulation IVC filter is not recommended at this time. 01/04: Switching patient to therapeutic Lovenox instead of heparin infusion as patient is still confused and pulled out 3 IV's overnight. Keep INR between 2-3 Plan to transition to Eliquis once therapeutic. (2) Hypokalemia: Code(s): E87.6 - Hypokalemia Status: Acute Assessment and Plan: 01/03: Potassium level continues to decline were stable low even after significant supplementation. Level again today is 3.1. Ordered 40 mEq oral and 40 mEq IV. 01/04: K+ 3.8 No preplacement required (3) Confusion: Code(s): R41.0 - Disorientation, unspecified Status: Chronic Assessment and Plan: 01/03/2024: Head CT negative for any acute intracranial process Patient has underlying dementia Continue neuro checks 01/03: Confusion seems to be baseline??? Known underlying dementia. Seems less confused with family present. 01/04: No change Continue neuro checks. (4) Hyponatremia: Code(s): E87.1 - Hypo-osmolality and hyponatremia Status: Acute Assessment and Plan: 01/03/2024: Sodium level currently is 130 The low sodium could potentially be the cause of her altered mental status Can be due to tea and toast versus hypovolemia from diarrhea Will put patient on fluid restriction of 1500 ml per day Discontinue LR IV fluids Will check urine sodium, urine osmolarity, serum osmolarity, and cortisol Continue to trend Consider nephrology consult sodium level does not improve 01/03: Stable sodium level 131 today 01/04: Na+ 130 Continue fluid restriction Urine sodium and serum osmolarity pending. Cortisol level 17.00 (5) Esophagitis with gastritis: Code(s): K29.70 - Gastritis, unspecified, without bleeding; K20.90 - Esophagitis, unspecified without bleeding Status: Acute Assessment and Plan: 01/03/2024: CT of abdomen pelvis showing moderate esophagitis/gastritis, bladder wall thickening as can be seen with cystitis Continue antiemetics Patient reported 2 bouts of diarrhea at home 01/03: No signs of GI bleeding at this time. Initiate anti coagulation for left lower extremity DVT 01/04: No change to current treatment plan (6) Diarrhea: Qualifiers: Diarrhea type: unspecified type Qualified Code(s): R19.7 - Diarrhea, unspecified Code(s): R19.7 - Diarrhea, unspecified Status: Acute Assessment and Plan: See above (7) Abnormal finding on urinalysis: Code(s): R82.90 - Unspecified abnormal findings in urine Status: Acute Assessment and Plan: 01/03/2024: UA showing 1+ ketones, 2+ leukocytes, 21-50 urine wbc's Urine culture was negative on final read 01/03: Though culture was negative patient's UA was convincing for UTI and she had confusion that is seems to be improving after antibiotics. 01/04: no change to current treatment plan (8) Generalized weakness: Code(s): R53.1 - Weakness Status: Acute Assessment and Plan: 01/03/2024: Will order PT and OT 01/04: No change to current treatment plan Time Spent With Patient Time with patient: 25 - 35 minutes Subjective Date/time seen: 01/05/24 07:35 Interval history: 01/02:
[2024-01-05] MEDS: NITROFURANTOIN MONOHYD MACROCR 100 MG CAP PO ×2 (09:41→21:08)
[2024-01-05] MEDS: ENOXAPARIN 60 MG/0.6 ML SYRINGE 55 MG SUB-Q ×2 (09:41→21:08)
--- NOTE | 2024-01-05 13:07 | PCPTNOTE ---
Patient unable to be seen for PT this date due to patient agitated and combative this date.
[2024-01-05 20:00] VITALS: PULSE 81; RESP 20; O2SAT 97
[2024-01-06 06:02] LABS: Hematocrit 45.9 % (37.0-47.0); Hemoglobin 14.5 g/dL (12.0-15.0); Mean Corpuscular HGB Conc 31.6 g/dl (32-36); Mean Corpuscular Volume 94.8 fl (80-100); Mean Platelet Volume 9.1 fl (7.4-10.4); Platelet Count Result 198 k/mm3 (150-375); Red Blood Count 4.84 M/mm3 (4.2-5.4); Red Cell Distribution Width 14.9 % (11.5-14.5); White Blood Count 6.2 K/mm3 (4.5-10.0)
[2024-01-06 06:16] LABS: Alanine Aminotransferase 14 U/L (6-35); Albumin Level 3.4 g/dL (3.5-5.1); Alkaline Phosphatase 69 U/L (38-126); Anion Gap 3 mmol/L (4-12); Aspartate Amino Transferase 23 U/L (14-36); Bilirubin,Total 1.1 mg/dL (0.2-1.3); Blood Urea Nitrogen 8 mg/dL (7-17); Calcium 8.5 mg/dL (8.4-10.2); Carbon Dioxide 32 mmol/L (22-30); Chloride 97 mmol/L (98-107); Estimated CRCL calculation 55 ml/min; Estimated Glomerular Filt Rate > 60; Glucose 103 mg/dL (65-110); Potassium 3.4 mmol/L (3.4-5.0); Sodium 132 mmol/L (137-145)
[2024-01-06] MEDS: NITROFURANTOIN MONOHYD MACROCR 100 MG CAP PO ×2 (08:37→20:23)
[2024-01-06] MEDS: ENOXAPARIN 60 MG/0.6 ML SYRINGE 55 MG SUB-Q ×2 (08:37→20:26)
[2024-01-06 12:23] LABS: INR 1.2; Prothrombin Time 15.4 Seconds (11.1-14.7)
[2024-01-06 14:00] VITALS: BP 120/77; PULSE 98; RESP 18; TEMP 36.9; O2SAT 99
--- NOTE | 2024-01-06 14:07 | P.PNIM_ITS ---
Progress Note: A&P Assessment and Plan (1) Deep vein thrombosis (DVT) of femoral vein of left lower extremity: Code(s): I82.412 - Acute embolism and thrombosis of left femoral vein Status: Acute Assessment and Plan: 01/03: Noted left lower extremity swelling ultrasound was ordered yesterday but not obtained. This morning nursing staff stated this was worse. Initiated patient on Eliquis 10 mg twice daily expecting ultrasound tomorrow. However, ultrasound was completed showing extensive clot burden left lower extremity from the common femoral down through the popliteal, posterior tibialis and peroneal veins. Discussed with Dr. Painting and since patient can be on anticoagulation IVC filter is not recommended at this time. 01/04: * Switching patient to therapeutic Lovenox instead of heparin infusion as p atient is still confused and pulled out 3 IV's overnight. * Keep INR between 2-3 * Plan to transition to Eliquis once therapeutic. 01/05: * Switching to Eliquis today * Patient will be discharged on Eliquis * Awaiting authorization for [facility] transfer (2) Hypokalemia: Code(s): E87.6 - Hypokalemia Status: Acute Assessment and Plan: 01/03: Potassium level continues to decline were stable low even after significant supplementation. Level again today is 3.1. Ordered 40 mEq oral and 40 mEq IV. 01/04: * K+ 3.8 * No preplacement required 01/05: * Remains stable no replacement required (3) Confusion: Code(s): R41.0 - Disorientation, unspecified Status: Chronic Assessment and Plan: 01/03/2024: * Head CT negative for any acute intracranial process * Patient has underlying dementia * Continue neuro checks 01/03: Confusion seems to be baseline??? Known underlying dementia. Seems less confused with family present. 01/04: * No change * Continue neuro checks. 2: * No change (4) Hyponatremia: Code(s): E87.1 - Hypo-osmolality and hyponatremia Status: Acute Assessment and Plan: 01/03/2024: * Sodium level currently is 130 * The low sodium could potentially be the cause of her altered mental status * Can be due to tea and toast versus hypovolemia from diarrhea * Will put patient on fluid restriction of 1500 ml per day * Discontinue LR IV fluids * Will check urine sodium, urine osmolarity, serum osmolarity, and cortisol * Continue to trend * Consider nephrology consult sodium level does not improve 01/03: Stable sodium level 131 today 01/04: * Na+ 130 * Continue fluid restriction * Urine sodium and serum osmolarity pending. * Cortisol level 17.00 01/05: * Sodium levels 132 * Will continue with fluid restriction * Labs still pending (5) Esophagitis with gastritis: Code(s): K29.70 - Gastritis, unspecified, without bleeding; K20.90 - Esophagitis, unspecified without bleeding Status: Acute Assessment and Plan: 01/03/2024: * CT of abdomen pelvis showing moderate esophagitis/gastritis, bladder wall thickening as can be seen with cystitis * Continue antiemetics * Patient reported 2 bouts of diarrhea at home 01/03: No signs of GI bleeding at this time. Initiate anti coagulation for left lower extremity DVT 01/04: * No change to current treatment plan (6) Diarrhea: Qualifiers: Diarrhea type: unspecified type Qualified Code(s): R19.7 - Diarrhea, unspecified Code(s): R19.7 - Diarrhea, unspecified Status: Acute Assessment and Plan: See above (7) Abnormal
--- NOTE | 2024-01-06 14:07 | PM.IMPN ---
Progress Note: A&P Assessment and Plan (1) Deep vein thrombosis (DVT) of femoral vein of left lower extremity: Code(s): I82.412 - Acute embolism and thrombosis of left femoral vein Status: Acute Assessment and Plan: 01/03: Noted left lower extremity swelling ultrasound was ordered yesterday but not obtained. This morning nursing staff stated this was worse. Initiated patient on Eliquis 10 mg twice daily expecting ultrasound tomorrow. However, ultrasound was completed showing extensive clot burden left lower extremity from the common femoral down through the popliteal, posterior tibialis and peroneal veins. Discussed with Dr. Painting and since patient can be on anticoagulation IVC filter is not recommended at this time. 01/04: Switching patient to therapeutic Lovenox instead of heparin infusion as patient is still confused and pulled out 3 IV's overnight. Keep INR between 2-3 Plan to transition to Eliquis once therapeutic. 2: Switching to Eliquis today Patient will be discharged on Eliquis Awaiting authorization for [facility] transfer (2) Hypokalemia: Code(s): E87.6 - Hypokalemia Status: Acute Assessment and Plan: 01/03: Potassium level continues to decline were stable low even after significant supplementation. Level again today is 3.1. Ordered 40 mEq oral and 40 mEq IV. 01/04: K+ 3.8 No preplacement required 01/05: Remains stable no replacement required (3) Confusion: Code(s): R41.0 - Disorientation, unspecified Status: Chronic Assessment and Plan: 01/03/2024: Head CT negative for any acute intracranial process Patient has underlying dementia Continue neuro checks 01/03: Confusion seems to be baseline??? Known underlying dementia. Seems less confused with family present. 01/04: No change Continue neuro checks. 2: No change (4) Hyponatremia: Code(s): E87.1 - Hypo-osmolality and hyponatremia Status: Acute Assessment and Plan: 01/03/2024: Sodium level currently is 130 The low sodium could potentially be the cause of her altered mental status Can be due to tea and toast versus hypovolemia from diarrhea Will put patient on fluid restriction of 1500 ml per day Discontinue LR IV fluids Will check urine sodium, urine osmolarity, serum osmolarity, and cortisol Continue to trend Consider nephrology consult sodium level does not improve 01/03: Stable sodium level 131 today 01/04: Na+ 130 Continue fluid restriction Urine sodium and serum osmolarity pending. Cortisol level 17.00 01/05: Sodium levels 132 Will continue with fluid restriction Labs still pending (5) Esophagitis with gastritis: Code(s): K29.70 - Gastritis, unspecified, without bleeding; K20.90 - Esophagitis, unspecified without bleeding Status: Acute Assessment and Plan: 01/03/2024: CT of abdomen pelvis showing moderate esophagitis/gastritis, bladder wall thickening as can be seen with cystitis Continue antiemetics Patient reported 2 bouts of diarrhea at home 01/03: No signs of GI bleeding at this time. Initiate anti coagulation for left lower extremity DVT 01/04: No change to current treatment plan (6) Diarrhea: Qualifiers: Diarrhea type: unspecified type Qualified Code(s): R19.7 - Diarrhea, unspecified Code(s): R19.7 - Diarrhea, unspecified Status: Acute Assessment and Plan: See above (7) Abnormal finding on urinalysis: Code(s): R82.90 - Unspecified abnormal findings in urine Status: Acute Assessment and Plan: 01/03/2024: UA showing 1+ ketones, 2+ leukocytes, 21-50 urine wbc's Urine culture was negative on final read 01/03: Though culture was negative patient's UA was convincing for UTI and she had confusion that is seems to be improving after antibiotics. 01/04: no change to current treatment plan (8) Generalized weakness: Code(s): Chele
[2024-01-06 22:00] VITALS: BP 152/71; PULSE 83; RESP 16; TEMP 36.2; O2SAT 99
[2024-01-07 05:57] VITALS: BP 145/76; PULSE 79; RESP 16; TEMP 36.4; O2SAT 96
[2024-01-07 06:53] LABS: Hematocrit 44.2 % (37.0-47.0); Mean Corpuscular HGB Conc 31.7 g/dl (32-36); Mean Corpuscular Hemoglobin 29.9 pg (26-34); Mean Corpuscular Volume 94.2 fl (80-100); Platelet Count Result 223 k/mm3 (150-375); Red Blood Count 4.69 M/mm3 (4.2-5.4); Red Cell Distribution Width 15.2 % (11.5-14.5); White Blood Count 6.1 K/mm3 (4.5-10.0)
[2024-01-07 07:03] LABS: Alanine Aminotransferase 14 U/L (6-35); Albumin Level 3.3 g/dL (3.5-5.1); Alkaline Phosphatase 64 U/L (38-126); Anion Gap 0 mmol/L (4-12); Aspartate Amino Transferase 21 U/L (14-36); Blood Urea Nitrogen 10 mg/dL (7-17); Calcium 8.6 mg/dL (8.4-10.2); Carbon Dioxide 34 mmol/L (22-30); Chloride 97 mmol/L (98-107); Estimated CRCL calculation 46 ml/min; Estimated Glomerular Filt Rate > 60; Glucose 102 mg/dL (65-110); Magnesium 1.8 mg/dL (1.6-2.3); Potassium 3.7 mmol/L (3.4-5.0); Sodium 131 mmol/L (137-145)
--- NOTE | 2024-01-07 08:13 | PCPTNOTE ---
Patient refused treatment this session. Patient reported she could not work with PT because of her heart. Patient's heart rate 72 and O2 SATs 96%. Reassured patient her heart was okay and the importance of therapy. Patient continued to refuse. RN aware.
[2024-01-07 12:29] LABS: Osmolality, Urine 386 mOsm/kg (50-1200)
--- NOTE | 2024-01-07 12:45 | P.PNIM_ITS ---
Progress Note: A&P Assessment and Plan (1) Deep vein thrombosis (DVT) of femoral vein of left lower extremity: Code(s): I82.412 - Acute embolism and thrombosis of left femoral vein Status: Acute Assessment and Plan: 01/03: Noted left lower extremity swelling ultrasound was ordered yesterday but not obtained. This morning nursing staff stated this was worse. Initiated patient on Eliquis 10 mg twice daily expecting ultrasound tomorrow. However, ultrasound was completed showing extensive clot burden left lower extremity from the common femoral down through the popliteal, posterior tibialis and peroneal veins. Discussed with Dr. Painting and since patient can be on anticoagulation IVC filter is not recommended at this time. 01/04: * Switching patient to therapeutic Lovenox instead of heparin infusion as p atshelley is still confused and pulled out 3 IV's overnight. * Keep INR between 2-3 * Plan to transition to Eliquis once therapeutic. 01/05: * Switching to Eliquis today * Patient will be discharged on Eliquis * Awaiting authorization for [facility] transfer 01/06: * On eliquis * Case management working on outpatient knee (2) Hypokalemia: Code(s): E87.6 - Hypokalemia Status: Acute Assessment and Plan: 01/03: Potassium level continues to decline were stable low even after significant supplementation. Level again today is 3.1. Ordered 40 mEq oral and 40 mEq IV. 01/04: * K+ 3.8 * No preplacement required 01/05: * Remains stable no replacement required (3) Confusion: Code(s): R41.0 - Disorientation, unspecified Status: Chronic Assessment and Plan: 01/03/2024: * Head CT negative for any acute intracranial process * Patient has underlying dementia * Continue neuro checks 01/03: Confusion seems to be baseline??? Known underlying dementia. Seems less confused with family present. 01/04: * No change * Continue neuro checks. 01/05: * No change (4) Hyponatremia: Code(s): E87.1 - Hypo-osmolality and hyponatremia Status: Acute Assessment and Plan: 01/03/2024: * Sodium level currently is 130 * The low sodium could potentially be the cause of her altered mental status * Can be due to tea and toast versus hypovolemia from diarrhea * Will put patient on fluid restriction of 1500 ml per day * Discontinue LR IV fluids * Will check urine sodium, urine osmolarity, serum osmolarity, and cortisol * Continue to trend * Consider nephrology consult sodium level does not improve 01/03: Stable sodium level 131 today 01/04: * Na+ 130 * Continue fluid restriction * Urine sodium and serum osmolarity pending. * Cortisol level 17.00 01/05: * Sodium levels 132 * Will continue with fluid restriction * Labs still pending 01/07/24: * Sodium level 131 * Continue with fluid restriction (5) Esophagitis with gastritis: Code(s): K29.70 - Gastritis, unspecified, without bleeding; K20.90 - Esophagitis, unspecified without bleeding Status: Acute Assessment and Plan: 01/03/2024: * CT of abdomen pelvis showing moderate esophagitis/gastritis, bladder wall thickening as can be seen with cystitis * Continue antiemetics * Patient reported 2 bouts of diarrhea at home 01/03: No signs of GI bleeding at this time. Initiate anti coagulation for left lower extremity DVT 01/04: * No change to current treatment plan (6) Diarrhea: Qualifiers: Diarrhea type: unspecified type Qualified Code(s): R19.7 - Diarrh
--- NOTE | 2024-01-07 12:45 | PM.IMPN ---
Progress Note: A&P Assessment and Plan (1) Deep vein thrombosis (DVT) of femoral vein of left lower extremity: Code(s): I82.412 - Acute embolism and thrombosis of left femoral vein Status: Acute Assessment and Plan: 01/03: Noted left lower extremity swelling ultrasound was ordered yesterday but not obtained. This morning nursing staff stated this was worse. Initiated patient on Eliquis 10 mg twice daily expecting ultrasound tomorrow. However, ultrasound was completed showing extensive clot burden left lower extremity from the common femoral down through the popliteal, posterior tibialis and peroneal veins. Discussed with Dr. Painting and since patient can be on anticoagulation IVC filter is not recommended at this time. 01/04: Switching patient to therapeutic Lovenox instead of heparin infusion as patient is still confused and pulled out 3 IV's overnight. Keep INR between 2-3 Plan to transition to Eliquis once therapeutic. 01/05: Switching to Eliquis today Patient will be discharged on Eliquis Awaiting authorization for [place] transfer 01/06: On eliquis Case management working on outpatient knee (2) Hypokalemia: Code(s): E87.6 - Hypokalemia Status: Acute Assessment and Plan: 01/03: Potassium level continues to decline were stable low even after significant supplementation. Level again today is 3.1. Ordered 40 mEq oral and 40 mEq IV. 01/04: K+ 3.8 No preplacement required 01/05: Remains stable no replacement required (3) Confusion: Code(s): R41.0 - Disorientation, unspecified Status: Chronic Assessment and Plan: 01/03/2024: Head CT negative for any acute intracranial process Patient has underlying dementia Continue neuro checks 01/03: Confusion seems to be baseline??? Known underlying dementia. Seems less confused with family present. 01/04: No change Continue neuro checks. 01/05: No change (4) Hyponatremia: Code(s): E87.1 - Hypo-osmolality and hyponatremia Status: Acute Assessment and Plan: 01/03/2024: Sodium level currently is 130 The low sodium could potentially be the cause of her altered mental status Can be due to tea and toast versus hypovolemia from diarrhea Will put patient on fluid restriction of 1500 ml per day Discontinue LR IV fluids Will check urine sodium, urine osmolarity, serum osmolarity, and cortisol Continue to trend Consider nephrology consult sodium level does not improve 01/03: Stable sodium level 131 today 01/04: Na+ 130 Continue fluid restriction Urine sodium and serum osmolarity pending. Cortisol level 17.00 01/05: Sodium levels 132 Will continue with fluid restriction Labs still pending 01/07/24: Sodium level 131 Continue with fluid restriction (5) Esophagitis with gastritis: Code(s): K29.70 - Gastritis, unspecified, without bleeding; K20.90 - Esophagitis, unspecified without bleeding Status: Acute Assessment and Plan: 01/03/2024: CT of abdomen pelvis showing moderate esophagitis/gastritis, bladder wall thickening as can be seen with cystitis Continue antiemetics Patient reported 2 bouts of diarrhea at home 01/03: No signs of GI bleeding at this time. Initiate anti coagulation for left lower extremity DVT 01/04: No change to current treatment plan (6) Diarrhea: Qualifiers: Diarrhea type: unspecified type Qualified Code(s): R19.7 - Diarrhea, unspecified Code(s): R19.7 - Diarrhea, unspecified Status: Acute Assessment and Plan: See above (7) Abnormal finding on urinalysis: Code(s): R82.90 - Unspecified abnormal findings in urine Status: Acute Assessment and Plan: 01/03/2024: UA showing 1+ ketones, 2+ leukocytes, 21-50 urine wbc's Urine culture was negative on final read 01/03: Though culture was negative patient's UA was convincing for UTI and she had confusion that is seems t
--- NOTE | 2024-01-07 14:05 | PCPTNOTE ---
Attempted to see patient for PT, however patient declined.
[2024-01-07] MEDS: NITROFURANTOIN MONOHYD MACROCR 100 MG CAP PO (20:06)
[2024-01-07] MEDS: APIXABAN 5 MG TABLET 10 MG PO (20:06)
[2024-01-07 21:54] VITALS: BP 140/68; PULSE 93; RESP 22; TEMP 36.6; O2SAT 96
[2024-01-08] MEDS: ACETAMINOPHEN 325 MG TABLET 650 MG PO ×3 (01:11→17:51)
[2024-01-08] MEDS: ONDANSETRON HCL ODT 4 MG TABLET PO (02:45)
[2024-01-08 06:00] VITALS: BP 144/78; PULSE 87; RESP 20; TEMP 36.6; O2SAT 97
[2024-01-08 06:03] LABS: Hematocrit 40.9 % (37.0-47.0); Hemoglobin 12.9 g/dL (12.0-15.0); Mean Corpuscular HGB Conc 31.5 g/dl (32-36); Mean Corpuscular Hemoglobin 29.7 pg (26-34); Mean Corpuscular Volume 94.2 fl (80-100); Mean Platelet Volume 8.9 fl (7.4-10.4); Platelet Count Result 222 k/mm3 (150-375); Red Blood Count 4.34 M/mm3 (4.2-5.4); Red Cell Distribution Width 15.1 % (11.5-14.5); White Blood Count 5.9 K/mm3 (4.5-10.0)
[2024-01-08 06:19] LABS: Alanine Aminotransferase 16 U/L (6-35); Albumin Level 3.1 g/dL (3.5-5.1); Alkaline Phosphatase 61 U/L (38-126); Anion Gap 2 mmol/L (4-12); Aspartate Amino Transferase 35 U/L (14-36); Bilirubin,Total 0.9 mg/dL (0.2-1.3); Blood Urea Nitrogen 11 mg/dL (7-17); Calcium 8.4 mg/dL (8.4-10.2); Carbon Dioxide 33 mmol/L (22-30); Chloride 96 mmol/L (98-107); Estimated CRCL calculation 40 ml/min; Estimated Glomerular Filt Rate > 60; Glucose 99 mg/dL (65-110); Magnesium 1.9 mg/dL (1.6-2.3); Potassium 3.6 mmol/L (3.4-5.0); Sodium 131 mmol/L (137-145)
[2024-01-08] MEDS: NITROFURANTOIN MONOHYD MACROCR 100 MG CAP PO ×2 (08:34→20:01)
[2024-01-08] MEDS: APIXABAN 5 MG TABLET 10 MG PO ×2 (08:34→20:01)
--- NOTE | 2024-01-08 08:41 | PM.IMPN ---
Progress Note: A&P Assessment and Plan (1) Deep vein thrombosis (DVT) of femoral vein of left lower extremity: Code(s): I82.412 - Acute embolism and thrombosis of left femoral vein Status: Acute (2) Hypokalemia: Code(s): E87.6 - Hypokalemia Status: Acute (3) Confusion: Code(s): R41.0 - Disorientation, unspecified Status: Chronic (4) Hyponatremia: Code(s): E87.1 - Hypo-osmolality and hyponatremia Status: Acute (5) Esophagitis with gastritis: Code(s): K29.70 - Gastritis, unspecified, without bleeding; K20.90 - Esophagitis, unspecified without bleeding Status: Acute (6) Diarrhea: Qualifiers: Diarrhea type: unspecified type Qualified Code(s): R19.7 - Diarrhea, unspecified Code(s): R19.7 - Diarrhea, unspecified Status: Acute (7) Abnormal finding on urinalysis: Code(s): R82.90 - Unspecified abnormal findings in urine Status: Acute (8) Generalized weakness: Code(s): R53.1 - Weakness Status: Acute Plan This is an 88-year-old female who presented to the hospital on 01/02/2024 for evaluation of weakness and confusion. Workup in the hospital included a chest x-ray which was negative. Abdomen pelvis CT which showed moderate esophagitis/gastritis, bladder wall thickening as seen with cystitis. Head CT was negative for any acute intracranial process. Initial labs revealed white blood cell count of 10.1, sodium 131, chloride 93, EGFR 52, magnesium 2.5, total bili 2.0, liver enzymes were normal. UA was obtained and showed 1+ urine ketones, 2+ leukocyte, 21-50 urine wbc's suggestive of UTI. Urine culture with mixed genital manuela. Patient remains to be confused. Patient endorsed pain and swelling in her left lower extremity. Venous ultrasound came back positive for left lower extremity DVT from common femoral vein down were. Anticoagulation was started. CT evidence of moderate esophagitis/gastritis. Place on PPI PT OT independently ambulatory Confusion? Baseline lives alone at home. Mild hyponatremia Possible UTI urine culture with genital manuela on nitrofurantoin Generalized weakness DVT prophylaxis on Eliquis code status do not resuscitate Subjective Date/time seen: 01/08/24 08:41 Interval history: This is an 88-year-old female who presented to the hospital on 01/02/2024 for evaluation of weakness and confusion. Workup in the hospital included a chest x-ray which was negative. Abdomen pelvis CT which showed moderate esophagitis/gastritis, bladder wall thickening as seen with cystitis. Head CT was negative for any acute intracranial process. Initial labs revealed white blood cell count of 10.1, sodium 131, chloride 93, EGFR 52, magnesium 2.5, total bili 2.0, liver enzymes were normal. UA was obtained and showed 1+ urine ketones, 2+ leukocyte, 21-50 urine wbc's suggestive of UTI. Urine culture with mixed genital manuela. Patient remains to be confused. Patient endorsed pain and swelling in her left lower extremity. Venous ultrasound came back positive for left lower extremity DVT from common femoral vein down were. Anticoagulation was started. CT evidence of moderate esophagitis/gastritis. Place on PPI PT OT independently ambulatory Confusion? Baseline lives alone at home. Mild hyponatremia Possible UTI urine culture with genital manuela on nitrofurantoin Generalized weakness DVT prophylaxis on Eliquis code status do not resuscitate Review of Systems Review of Systems: All systems reviewed & are unremarkable except as noted in HPI and below Exam Narrative: General: In no acute distress, well nourished Head: atraumatic, no encephalopathy Eyes: EOMI, PERRLA, sclera clear ENT: moist mucous membranes, nasal passages clear Neck: supple, no JVD, no adenopathy, trachea midline Cardiac: Normal S1 and S2. No murmur, gallops or friction rubs, peripheral pulses intact. Respiratory: Lungs clear to auscultation, no adventit
[2024-01-08] MEDS: PANTOPRAZOLE 40 MG TABLET PO (12:27)
[2024-01-08 14:00] VITALS: BP 114/78; PULSE 83; RESP 16; TEMP 36.5; O2SAT 98
[2024-01-08 21:06] VITALS: O2SAT 95
[2024-01-08] MEDS: MELATONIN 3 MG TABLET PO (21:28)
[2024-01-08 22:00] VITALS: BP 135/66; PULSE 86; RESP 20; TEMP 36.5; O2SAT 98
[2024-01-09 06:00] VITALS: BP 131/70; PULSE 80; RESP 20; TEMP 36.5; O2SAT 98
[2024-01-09 06:06] LABS: Hematocrit 41.5 % (37.0-47.0); Mean Corpuscular HGB Conc 31.3 g/dl (32-36); Mean Corpuscular Volume 95.6 fl (80-100); Mean Platelet Volume 8.6 fl (7.4-10.4); Platelet Count Result 223 k/mm3 (150-375); Red Blood Count 4.34 M/mm3 (4.2-5.4); Red Cell Distribution Width 15.1 % (11.5-14.5); White Blood Count 5.2 K/mm3 (4.5-10.0)
[2024-01-09 06:32] LABS: Alanine Aminotransferase 22 U/L (6-35); Albumin Level 3.4 g/dL (3.5-5.1); Alkaline Phosphatase 61 U/L (38-126); Anion Gap 4 mmol/L (4-12); Aspartate Amino Transferase 40 U/L (14-36); Bilirubin,Total 0.9 mg/dL (0.2-1.3); Blood Urea Nitrogen 10 mg/dL (7-17); Calcium 8.9 mg/dL (8.4-10.2); Carbon Dioxide 30 mmol/L (22-30); Chloride 96 mmol/L (98-107); Estimated CRCL calculation 40 ml/min; Estimated Glomerular Filt Rate > 60; Glucose 103 mg/dL (65-110); Potassium 3.1 mmol/L (3.4-5.0); Sodium 130 mmol/L (137-145)
[2024-01-09] MEDS: PANTOPRAZOLE 40 MG TABLET PO (09:53)
[2024-01-09] MEDS: NITROFURANTOIN MONOHYD MACROCR 100 MG CAP PO (09:53)
[2024-01-09] MEDS: APIXABAN 5 MG TABLET 10 MG PO (09:53)
[2024-01-09] MEDS: POTASSIUM CHLORIDE 20 MEQ ER TABLET 40 MEQ PO (09:55)
--- NOTE | 2024-01-09 12:29 | PCNFU ---
Nutrition Follow-Up Complete: Potential for inadequate oral intake related to loss of appetite as evidenced by report of 2-13 lb weight loss Goal: adequate PO intake at least 75% of meals and supplements Pt current nutrition is regular diet, 1500mL fluid restriction and Ensure Compact BID. Nutrition recommendation: Continue with a regular diet, 1500mL fluid and Ensure Compact BID. Will order a weight check. Encouraged patient to eat well of small/frequent meals and of ONS. Replace K+. Last recorded weight is 55.4 kg. No new weights. Bowel Motility: BM /, abdomen WNL Labs Reviewed: Na 130, K+ 3.1 Meds Noted: Eliquis, Tylenol, Zofran, Protonix Skin: No pressure ulcer Additional Notes: Patient reports a fair appetite. She reports she is not eating as much as she used to. She reports intermittent nausea/vomiting (this am) and occasional diarrhea, no constipation. Denies chewing/swallowing problems. Patient not sure of a UBW. No new weights since admission. Edema: +2 (left leg), +3 (left foot). Intakes 25-100% x 3 (4/4), 20-50% x 3 (4/3), 50-75% x 3 (4/2). Monitoring intakes, weights, labs, supplement tolerance, plan of care Follow up in 7 days
--- NOTE | 2024-01-09 14:23 | PM.DS ---
DS: Admitting Diagnosis Discharge Date 01/09/2024 Admitting Diagnosis Confusion DS: Discharge Diagnosis Discharge Diagnosis (1) Deep vein thrombosis (DVT) of femoral vein of left lower extremity: Code(s): I82.412 - Acute embolism and thrombosis of left femoral vein Status: Acute (2) Hypokalemia: Code(s): E87.6 - Hypokalemia Status: Acute (3) Confusion: Code(s): R41.0 - Disorientation, unspecified Status: Chronic (4) Hyponatremia: Code(s): E87.1 - Hypo-osmolality and hyponatremia Status: Acute (5) Esophagitis with gastritis: Code(s): K29.70 - Gastritis, unspecified, without bleeding; K20.90 - Esophagitis, unspecified without bleeding Status: Acute (6) Diarrhea: Qualifiers: Diarrhea type: unspecified type Qualified Code(s): R19.7 - Diarrhea, unspecified Code(s): R19.7 - Diarrhea, unspecified Status: Acute (7) Abnormal finding on urinalysis: Code(s): R82.90 - Unspecified abnormal findings in urine Status: Acute (8) Generalized weakness: Code(s): R53.1 - Weakness Status: Acute DS: Summary Hospital Course Hospital Course: This is an 88-year-old female who presented to the hospital on 01/02/2024 for evaluation of weakness and confusion.? Workup in the hospital included a chest x-ray which was negative.? Abdomen pelvis CT which showed moderate esophagitis/gastritis, bladder wall thickening as seen with cystitis.? Head CT was negative for any acute intracranial process.? Initial labs revealed white blood cell count of 10.1, sodium 131, chloride 93, EGFR 52, magnesium 2.5, total bili 2.0, liver enzymes were normal.? UA was obtained and showed 1+ urine ketones, 2+ leukocyte, 21-50 urine wbc's suggestive of UTI.? Urine culture with mixed genital manuela.? Patient remains to be confused.? Patient endorsed pain and swelling in her left lower extremity.? Venous ultrasound came back positive for left lower extremity DVT from common femoral vein down were.? Anticoagulation was started. CT evidence of moderate esophagitis/gastritis.? Place on PPI PT OT independently ambulatory Confusion?? Baseline lives alone at home. Has underlying dementia most likely Mild hyponatremia Possible UTI urine culture with genital manuela on nitrofurantoin finish the course Generalized weakness DVT prophylaxis on Eliquis code status do not resuscitate Time Spent with Patient Time attestation: Total time spent providing and/or coordinating discharge services: Exam Narrative: General: In no acute distress, well nourished Head: atraumatic, no encephalopathy Eyes: EOMI, PERRLA, sclera clear ENT: moist mucous membranes, nasal passages clear Neck: supple, no JVD, no adenopathy, trachea midline Cardiac: Normal S1 and S2. No murmur, gallops or friction rubs, peripheral pulses intact. Respiratory: Lungs clear to auscultation, no adventitious lung sounds currently on room air Gastrointestinal: soft, non-distended, non-tender, normoactive bowel sounds. : voiding without difficulty. Extremities: moves all extremities well, edema noted to left lower extremity 2-3+ pitting Skin: clean, dry, intact. No wounds or lesions. Neuro: Alert and confused, cranial nerves intact, no neuro deficits. Psych: normal mood, normal affect, interactive DS: Data Data Completed and Pending Labs on day of discharge: Labs from last 24 hours 01/09/24 05:43 WBC 5.2 RBC 4.34 Hgb 13.0 Hct 41.5 MCV 95.6 MCH 30.0 MCHC 31.3 L RDW 15.1 H Plt Count 223 MPV 8.6 Sodium 130 L Potassium 3.1 L Chloride 96 L Carbon Dioxide 30 Anion Gap 4 BUN 10 Creatinine 0.70 Estim Creat Clear Calc 40 Estimated GFR > 60 Glucose 103 Calcium 8.9 Magnesium 2.0 Total Bilirubin 0.9 AST 40 H ALT 22 Alkaline Phosphatase 61 Total Protein 6.0 L Albumin 3.4 L Imaging Radiologist's impression: ITS Impressions Chest X-Ray 01/01/24 16:50 IMPRESSIO
[2024-01-09 16:15] VITALS: BP 133/86; PULSE 84; RESP 19; TEMP 36.2; O2SAT 96
== END 2024-01-09 16:37 | DRG 690 ==
LOC: ANHED 20:52 → ANH3MED 20:53
PROVIDERS: Emergency Medicine; Nurse Practitioner; Nurse Practitioner Acute Care; Admitting Provider Internal Medicine; Emergency Provider Student in an Organized Health Care Education/Training Program; PCP Internal Medicine; Visit Provider Internal Medicine
DX: N39.0 Urinary tract infection, site not specified (principal); I82.412 Acute embolism and thrombosis of left femoral vein; E87.1 Hypo-osmolality and hyponatremia; K29.70 Gastritis, unspecified, without bleeding; K20.90 Esophagitis, unspecified without bleeding; F03.90 Unspecified dementia, unspecified severity, without behavioral disturbance, psychotic disturbance, mood disturbance, and anxiety; E86.0 Dehydration; E87.6 Hypokalemia; R19.7 Diarrhea, unspecified; Z20.822 Contact with and (suspected) exposure to COVID-19; Z66 Do not resuscitate; Z87.891 Personal history of nicotine dependence
CPT/HCPCS: 36415; 70450; 71045; 74177; 80048; 80053; 81001; 82533; 82550; 83735; 83930; 83935; 84300; 85025; 85027; 85055; 85610; 85730; 87086; 87088; 87637; 93005; 93970; 96360; 96361; 96365; 96366; 96372; 97110; 97161; 97165; 97530; 97535; 99285; A9270; G0378; J1644; J1650; J7030; J7120; Q9967

== ENCOUNTER 2024-01-23 13:00 | Observation (INO) | payer MEDICARE, MEDICAID, SELFPAY ==
[2024-01-23] VITALS (7 sets, daily range): BP systolic 126–165; BP diastolic 64–97; PULSE 65–80; RESP 15–19; TEMP 36.3; O2SAT 98–99; BMI 23.3
--- NOTE | ~2024-01-23 | CT_ITS ---
CT head without contrast Indication: Trauma COMPARISON: 01/01/2024 Technique: Serial scans were obtained through the brain without the administration of contrast. Dose reduction technique was used on this scan by utilizing automated exposure control and iterative recon struction technique. The dose-length product (DLP) was 681.00 mGy-cm. Findings: There is no evidence of intracranial hemorrhage, mass lesion, or acute infarct. The ventri cles and subarachnoid spaces are dilated, consistent with mild to moderate atrophy. Low attenuation regions are seen within the periventricular white matter bilaterally, likely representing changes fro m chronic microvascular ischemic disease. There is no evidence of edema, mass effect or midline shif t. The visualized paranasal sinuses and mastoid air cells are clear. There is soft tissue swelling a t the high frontal scalp. Impression: No intracranial hemorrhage, mass, or acute infarct. Atrophy and chronic white matter changes, as above. Soft tissue swelling at the high frontal scalp. Reviewed, dictated and finalized at location . Impression: No intracranial hemorrhage, mass, or acute infarct. Atrophy and chronic white matter changes, as above. Soft tissue swelling at the high frontal scalp.
--- NOTE | ~2024-01-23 | XR_ITS ---
Left Hand Technique: PA, oblique, and lateral views were obtained. Clinical History: Injury Findings: No acute fracture or dislocation is seen. Osseous alignment is anatomic. Joint spaces are p reserved. Soft tissues are unremarkable. Impression: Unremarkable left hand. Reviewed, dictated and finalized at location M. Impression: Unremarkable left hand.
--- NOTE | ~2024-01-23 | CT_ITS ---
CT Facial Bones and Cervical Spine Clinical Indication: Trauma Technique: Contiguous axial scans were obtained through the facial bones and cervical spine followed by coronal and sagittal reconstructions. Dose reduction technique was used on this scan by utilizing automated exposure control and iterative reconstruction technique. The dose-length product (DLP) was 140.07 mGy-cm. Findings: CT facial bones: No fractures are identified. The visualized paranasal sinuses are clear. Intraorbita l soft tissues appear normal. CT cervical spine: No fractures or subluxation. There is mild degenerative disc narrowing at C5-C6, and moderate degenerative disc narrowing at C6-C7. Moderate facet arthropathy present throughout cerv ical spine. No prevertebral soft tissue swelling. 6 mm nodule noted the right lung apex. Impression: No fracture is seen in the facial bones. No fracture or subluxation of the cervical spine. 6 mm right apical pulmonary nodule, likely focal scarring. Consider follow-up CT as indicated. Reviewed, dictated and finalized at [facility]. Impression: No fracture is seen in the facial bones. No fracture or subluxation of the cervical spine. 6 mm right apical pulmonary nodule, likely focal scarring. Consider follow-up C T as indicated.
--- NOTE | ~2024-01-23 | US_ITS ---
EXAMINATION:US venous doppler LE LT INDICATION:History of deep venous thrombosis of the left lower extremity. TECHNIQUE: Multiple grayscale, color flow and Doppler images of the left lower extremity deep venous systems were obtained and reviewed. COMPARISON:Ultrasound dated 01/04/2024 FINDINGS: There is persistent deep venous thrombosis of the left common femoral, profunda femoral and femoral veins. The remainder of the left lower extremity veins are patent. IMPRESSION: 1: Extensive deep venous thrombosis of the left lower extremity veins. Reviewed, dictated and finalized at location B.
--- NOTE | 2024-01-23 13:22 | ED.FALL ---
HPI - Fall General Chief Complaint: Fall Stated Complaint: mult. falls History of Present Illness HPI Narrative: 88-year-old female presenting to the emergency department for evaluation after having multiple ground level falls at [facility]. patient has had multiple falls over the last few days. Patient had a fall last night and was evaluated at outside emergency department. Patient does have a very stages of bruising to head face and legs. Patient does have swelling of her left lower extremity that is significant. Patient is on apixaban. Related Data Home Medications Medication Instructions Recorded Confirmed acetaminophen 325 mg capsule 650 mg PO Q4H PRN pain (0-3) 01/01/24 01/23/24 (Tylenol) apixaban 5 mg tablet (Eliquis) 5 mg PO DAILY 01/23/24 01/23/24 lorazepam 0.5 mg tablet (Ativan) 0.5 mg PO BID PRN Agitation 01/23/24 01/23/24 Allergies Allergy/AdvReac Type Severity Reaction Status Date / Time Penicillins Allergy Severe hives Verified 01/01/24 13:27 codeine AdvReac Unknown nausea Verified 01/01/24 13:27 Review of Systems Review of Systems: All systems reviewed & are unremarkable except as noted in HPI and below PMFSH Past Medical History Medical History (Updated 01/24/24 @ 10:30 by Francisco Cheney DO) Dementia Surgical History Surgical History (Updated 01/23/24 @ 20:50 by Libra Salas PA-C) History of section History of cholecystectomy History of colonoscopy with polypectomy History of hysterectomy Family History Family History (Updated 01/23/24 @ 20:51 by Libra Salas PA-C) Father Black lung disease Mother Hypertension Social History Social History (Updated 01/23/24 @ 20:52 by Libra Salas PA-C) Social History: Surrogate medical decision maker: Az Subramanian, son ([phone]). Code status: Do not resuscitate. Smoking packs per day: 1 Smoking cigarettes per day: 20.0 Years smoked: 4 Smoking pack-years: 4.00 Smoking status: Former smoker Tobacco type: cigarettes Alcohol intake: never Substance use: never Do You Feel Safe in your Home?: Yes Lack of Transportation: No Lack of Food: Never True Current Housing: I Have Housing Concerned About Future Housing: No Difficulty Paying Gas/Electric Bills: No Difficulty Paying for Meds: No Currently Unemployed: No Education: High School Diploma/GED Difficulty w/ Childcare or Family Care: No Living arrangements: senior care Additional living arrangements comments: Currently at a rehab facility, prior to that she was living in her own home in [place]. She is and had 6 children. 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 Spiritual care concerns: No Exam Narrative: APPEARANCE: Well appearing, no pain, no distress, well-nourished. HEAD: normocephalic, atraumatic. EYES: PERRLA/EOMI, conjunctivae clear. NOSE: Normal no drainage EARS:TMS clear with good light reflex. THROAT: Pharynx clear, no exudate. NECK: Supple. No adenopathy, no masses. RESPIRATORY: Airway patent, respirations nonlabored. Clear to auscultation bilaterally, no rales, rhonchi, wheezing. CARDIOVASCULAR: Regular rate and rhythm without murmurs rubs or gallops. ABDOMINAL: Soft, nontender, nondistended, normal bowel sounds MUSCULOSKELETAL: Moves all extremities. Strength/ROM intact, No edema, No calf tenderness. NEURO: Alert. Cranial nerves II through XII intact. Grossly intact SKIN: Multiple stages of bruising on face and limbs Course Vital Signs Vital signs: Vital Signs Pulse Rate 67 01/23/24 13:00 Respiratory Rate 15 01/23/24 13:00 Blood Pressure 165/69 H 01/23/24 13:00 Pulse Oximetry 98 01/23/24 13:00 Oxygen Delivery Room Air 01/23/24 13:00 Temperature 98.5 F 01/25/24 16:04 Pulse Rate 100 01/25/24 16:04 Respiratory Rate 16 01/25/24 16:04 Blood Pressure 15
[2024-01-23 14:29] LABS: Basophils Absolute Auto 0.1 K/mm3 (0.0-0.1); Basophils Percent Auto 0.7 % (0.2-1.2); Eosinophils Absolute Auto 0.1 K/mm3 (0-0.3); Eosinophils Percent Auto 1.8 % (0-4.4); Hemoglobin 13.6 g/dL (12.0-15.0); Immature Granulocyte Absolute 0.03 K/mm3 (0.00-0.031); Immature Granulocyte Percent A 0.4 % (0-0.5); Lymphocytes Absolute Auto 0.99 K/mm3 (0.9-3.2); Lymphocytes Percent Auto 14.5 % (18.3-44.2); Mean Corpuscular HGB Conc 31.6 g/dl (32-36); Mean Corpuscular Hemoglobin 30.2 pg (26-34); Mean Corpuscular Volume 95.6 fl (80-100); Mean Platelet Volume 8.4 fl (7.4-10.4); Monocytes Absolute Auto 0.5 K/mm3 (0.1-0.6); Monocytes Percent Auto 7.4 % (2.6-8.5); Neutrophils Absolute Auto 5.2 K/mm3 (1.3-6.7); Neutrophils Percent Auto 75.2 % (45.5-73.1); Platelet Count Result 293 k/mm3 (150-375); Red Cell Distribution Width 16.7 % (11.5-14.5); White Blood Count 6.9 K/mm3 (4.5-10.0)
[2024-01-23 14:39] LABS: Creatine Kinase 102 U/L (30-135)
[2024-01-23 14:40] LABS: Lactic Acid Reflex 1.2 mmol/L (0.7-2.0)
[2024-01-23 14:41] LABS: Prothrombin Time 14.1 Seconds (11.1-14.7)
[2024-01-23 14:41] LABS: Alanine Aminotransferase 14 U/L (6-35); Albumin Level 3.7 g/dL (3.5-5.1); Alkaline Phosphatase 100 U/L (38-126); Anion Gap 1 mmol/L (4-12); Aspartate Amino Transferase 25 U/L (14-36); Bilirubin,Total 1.1 mg/dL (0.2-1.3); Blood Urea Nitrogen 12 mg/dL (7-17); Calcium 8.9 mg/dL (8.4-10.2); Carbon Dioxide 34 mmol/L (22-30); Chloride 98 mmol/L (98-107); Estimated CRCL calculation 44 ml/min; Estimated Glomerular Filt Rate > 60; Glucose 100 mg/dL (65-110); Potassium 3.6 mmol/L (3.4-5.0); Sodium 133 mmol/L (137-145)
[2024-01-23 14:42] LABS: Partial Thromboplastin Time 29.8 Seconds (22.3-36.8)
[2024-01-23 15:00] LABS: Add Urine Microscopic? YES; Appearance Urine Clear (Clear); Bacteria Urine None Seen /hpf; Bilirubin Urine Negative (Negative); Blood Urine Negative (Negative); Color Urine Yellow (Yellow); Glucose Urine UA Negative (Negative); Ketones Urine Negative (Negative); Leukocyte Esterase Ur 1+ LEU/UL (Negative); Need Manual Microscopic Reviewed; Nitrate Urine Negative (Negative); Non Pathogenic Casts 0-2; Protein Urine Negative (Negative); RBC Urine 0-2 /hpf (0-2); Specific Grav Ur 1.008 (1.001-1.035); Squamous Epithelial Cell Urine None Seen /hpf (Few); Urobilinogen Urine 0.2 mg/dL (<2.0); WBC Urine 0-5 /hpf (0-3); pH Urine 7.5 (5.0-9.0)
[2024-01-23] MEDS: HEPARIN SODIUM 5,000 UNITS/ML VIAL 5000 UNITS IV PUSH (17:41)
[2024-01-23] MEDS: HEPARIN SOD/D5W 100 UNITS/ML 25,000 UNITS/250 ML BAG 11 UNITS IV CONT (17:43)
--- NOTE | 2024-01-23 18:11 | PM.IMHP ---
H&P: HPI History of Present Illness Date/Time: 01/23/24 18:00 Chief Complaint: Fall. Narrative: This is an 88-year-old female with dementia who presented to the emergency department for evaluation after a fall. She is not the best historian and thus some of the following is obtained via a review of her EMR as well as discussions with her son Carlos via phone, with the patient's permission. She is known to the hospitalist service from an admission late December 2023 at which time she presented with increasing weakness and confusion. Two weeks prior to that she was still living in her own home and was independent of all activities of daily living. It was initially thought that she perhaps had urinary tract infection but her urine culture grew out normal manuela. She was started on a PPI for findings of gastritis/esophagitis on CT scan. An extensive left lower extremity DVT was found and she was started on Eliquis. She remained confused (workup was unrevealing aside from above) and she was discharged to [facility] on 01/09/2024. Son tells me that she was seen at [facility] 2 times 4 falls since being at the facility. She was sent back in today after sustaining an unwitnessed ground level fall; staff at the facility report that she has ?impulsive.? On arrival to the ED today she had bruises in several stages of healing on her face, scalp, shoulders, and left side. She cannot tell me how or why she falls and does not remember having antecedent symptoms before the falls. She does not think that she loses consciousness but cannot say for sure. At the time my evaluation she complains of discomfort in the forehead and in her left leg. She denies vertigo, visual changes, focal weakness, paresthesias, difficulties speaking and swallowing, chest pain, shortness a breath, abdominal pain, nausea, vomiting, diarrhea, and dysuria. She also denies numbness in her left leg. In the ED: She was afebrile on arrival with stable blood pressures. Labs were significant for WBC count of 6.9, hemoglobin 13.6, sodium 133, carbon dioxide 34, creatinine 0.70, lactic acid 1.2. Urine showed 1+ leukocyte esterase but was otherwise benign. Head CT was negative for acute findings but did show soft tissue swelling at the high frontal scalp. CT of the facial bones and cervical spine showed no fracture of the facial bones or cervical spine and a 6 mm right apical pulmonary nodule. Left hand x-ray was unremarkable. Lower extremity venous Doppler ultrasound once again showed extensive DVTs in the left lower extremity veins. I had a discussion with the patient's son Carlos via phone regarding risk factors of anticoagulation but given the extensiveness and lack of improvement of the DVTs these last several weeks we decided to attempt heparin drip to see how she responds. She is being admitted in this setting. Review of Systems Review of Systems: Unable to obtain accurately given confusion. [facility] Past Medical History Medical History (Updated 01/23/24 @ 21:11 by Libra Salas PA-C) Dementia Surgical History Surgical History (Updated 01/23/24 @ 20:50 by Libra Salas PA-C) History of section History of cholecystectomy History of colonoscopy with polypectomy History of hysterectomy Family History Family History (Updated 01/23/24 @ 20:51 by Libra Salas PA-C) Father Black lung disease Mother Hypertension Social History Social History (Updated 01/23/24 @ 20:52 by Libra Salas PA-C) Social History: Surrogate medical decision maker: Az Subramanian, son ([phone]). Code status: Do not resuscitate. Smoking packs per day: 1 Smoking cigarettes per day: 20.0 Years smoked: 4 Smoking pack-years: 4.00 Smoking status: Former smoker Tobacco type: cigarettes Alcohol intake: never Substance use: never Do You Feel Safe in your Home?: Yes Lack of Transportation: No Lack of Food: Never True Cu
--- NOTE | 2024-01-23 19:10 | ADMGEN ---
This patient, Gela Sampson, was admitted to Medical Room 252-01. Patient/family oriented to hospital policies and general routines including ID bracelet, bed and alarms, visiting hours, pain management, procedures, bathroom and other care routines, personal items, smoking policy, room service/diet, and visiting hours. Information on how to activate the Rapid Response Team has been discussed. Patient/Family are encouraged to report perceived risks to care and to ask questions if they do not understand what they are told or what they should do.
[2024-01-23 21:59] LABS: Fractional Inspired Oxygen 21 %; PCO2 VBG 38.1 mmHg (42.0-48.0); PO2 VBG 53.7 mmHg (35.0-45.0)
[2024-01-23 22:01] LABS: Device ROOM AIR; pH VBG 7.469 (7.300-7.400)
[2024-01-23 22:08] LABS: Ammonia < 9 umol/L (9-30)
[2024-01-24] VITALS (10 sets, daily range): BP systolic 128–168; BP diastolic 64–75; PULSE 78–94; RESP 12–16; TEMP 36.1–37.2; O2SAT 95–99
[2024-01-24 00:37] LABS: Partial Thromboplastin Time > 200.0 Seconds (22.3-36.8)
[2024-01-24 05:31] LABS: Amphetamine Screen Urine Negative (Negative); Barbiturate Screen Urine Negative (Negative); Benzodiazepines Screen Urine Positive (Negative); Cannabinoid Screen Urine Negative (Negative); Cocaine Screen Urine Negative (Negative); Methadone Screen Urine Negative (Negative); Opiate Screen Urine Negative (Negative); Phencyclidine Screen Urine Negative (Negative)
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
[2024-01-24 07:54] LABS: Basophils Absolute Auto 0.1 K/mm3 (0.0-0.1); Eosinophils Absolute Auto 0.1 K/mm3 (0-0.3); Eosinophils Percent Auto 1.4 % (0-4.4); Hematocrit 35.4 % (37.0-47.0); Hemoglobin 11.1 g/dL (12.0-15.0); Immature Granulocyte Absolute 0.03 K/mm3 (0.00-0.031); Immature Granulocyte Percent A 0.5 % (0-0.5); Lymphocytes Absolute Auto 1.22 K/mm3 (0.9-3.2); Lymphocytes Percent Auto 19.4 % (18.3-44.2); Mean Corpuscular HGB Conc 31.4 g/dl (32-36); Mean Corpuscular Hemoglobin 29.8 pg (26-34); Mean Corpuscular Volume 94.9 fl (80-100); Mean Platelet Volume 8.6 fl (7.4-10.4); Monocytes Absolute Auto 0.6 K/mm3 (0.1-0.6); Neutrophils Absolute Auto 4.3 K/mm3 (1.3-6.7); Neutrophils Percent Auto 67.7 % (45.5-73.1); Platelet Count Result 268 k/mm3 (150-375); Red Blood Count 3.73 M/mm3 (4.2-5.4); Red Cell Distribution Width 16.5 % (11.5-14.5); White Blood Count 6.3 K/mm3 (4.5-10.0)
[2024-01-24 08:03] LABS: Anion Gap 2 mmol/L (4-12); Blood Urea Nitrogen 12 mg/dL (7-17); Calcium 8.2 mg/dL (8.4-10.2); Carbon Dioxide 29 mmol/L (22-30); Chloride 100 mmol/L (98-107); Estimated CRCL calculation 51 ml/min; Estimated Glomerular Filt Rate > 60; Glucose 97 mg/dL (65-110); Potassium 3.4 mmol/L (3.4-5.0); Sodium 131 mmol/L (137-145)
[2024-01-24 08:09] LABS: Partial Thromboplastin Time 129.5 Seconds (22.3-36.8)
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
[2024-01-25] VITALS: PULSE 66
[2024-01-25 01:35] VITALS: BP 125/74; PULSE 80; RESP 16; TEMP 36.7; O2SAT 98
[2024-01-25 04:00] VITALS: PULSE 68
[2024-01-25 05:50] VITALS: BP 142/75; PULSE 88; RESP 16; TEMP 36.6; O2SAT 97
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
[2024-01-25 08:21] LABS: Alanine Aminotransferase 13 U/L (6-35); Albumin Level 3.5 g/dL (3.5-5.1); Alkaline Phosphatase 95 U/L (38-126); Anion Gap 1 mmol/L (4-12); Aspartate Amino Transferase 23 U/L (14-36); Blood Urea Nitrogen 8 mg/dL (7-17); Calcium 8.7 mg/dL (8.4-10.2); Carbon Dioxide 32 mmol/L (22-30); Chloride 98 mmol/L (98-107); Estimated CRCL calculation 51 ml/min; Estimated Glomerular Filt Rate > 60; Glucose 104 mg/dL (65-110); Potassium 3.8 mmol/L (3.4-5.0); Sodium 131 mmol/L (137-145)
[2024-01-25 08:26] LABS: Basophils Absolute Auto 0.1 K/mm3 (0.0-0.1); Basophils Percent Auto 0.6 % (0.2-1.2); Eosinophils Absolute Auto 0.1 K/mm3 (0-0.3); Hematocrit 39.8 % (37.0-47.0); Hemoglobin 12.7 g/dL (12.0-15.0); Immature Granulocyte Absolute 0.06 K/mm3 (0.00-0.031); Immature Granulocyte Percent A 0.6 % (0-0.5); Lymphocytes Absolute Auto 1.56 K/mm3 (0.9-3.2); Lymphocytes Percent Auto 16.7 % (18.3-44.2); Mean Corpuscular HGB Conc 31.9 g/dl (32-36); Mean Corpuscular Volume 94.1 fl (80-100); Mean Platelet Volume 8.5 fl (7.4-10.4); Monocytes Absolute Auto 0.9 K/mm3 (0.1-0.6); Monocytes Percent Auto 9.8 % (2.6-8.5); Neutrophils Absolute Auto 6.7 K/mm3 (1.3-6.7); Neutrophils Percent Auto 71.3 % (45.5-73.1); Platelet Count Result 291 k/mm3 (150-375); Red Blood Count 4.23 M/mm3 (4.2-5.4); Red Cell Distribution Width 16.4 % (11.5-14.5); White Blood Count 9.3 K/mm3 (4.5-10.0)
[2024-01-25] MEDS: HEPARIN SOD/D5W 100 UNITS/ML 25,000 UNITS/250 ML BAG 12 UNITS IV CONT (08:53)
[2024-01-25 09:03] LABS: Prothrombin Time 13.5 Seconds (11.1-14.7)
[2024-01-25 09:04] LABS: Partial Thromboplastin Time 31.2 Seconds (22.3-36.8)
--- NOTE | 2024-01-25 10:46 | PM.PNGS ---
Progress Note: A&P Assessment and Plan (1) Deep vein thrombosis of left lower extremity: Qualifiers: Affected thrombotic vein of extremity: femoral Chronicity: chronic Qualified Code(s): I82.512 - Chronic embolism and thrombosis of left femoral vein Code(s): I82.402 - Acute embolism and thrombosis of unspecified deep veins of left lower extremity Status: Acute Assessment and Plan: I discussed with son yesterday and he is planning for patient to enter into hospice. I gave him the option of IVC filter prior to entering hospice if he so chooses. Will not plan for IVC filter placement unless he decides that patient should get it prior to discharge. Please notify me if there is a decision on this matter. (2) Dementia: Code(s): F03.90 - Unspecified dementia, unspecified severity, without behavioral disturbance, psychotic disturbance, mood disturbance, and anxiety Status: Acute (3) Falls frequently: Code(s): R29.6 - Repeated falls Status: Acute Subjective Subjective Date/Time Seen: 01/25/24 10:46 Objective Data Vital Signs Vital Signs: Vital Signs - 24 hr 01/24/24 12:04 01/24/24 14:35 01/24/24 16:00 Temperature 37.2 C Pulse Rate 88 81 82 Respiratory Rate 16 Blood Pressure 128/75 Pulse Oximetry 96 Oxygen Delivery 01/24/24 16:00 01/24/24 20:37 01/25/24 01:35 Temperature 36.8 C 36.7 C 36.7 C Pulse Rate 87 83 80 Respiratory Rate 16 16 16 Blood Pressure 130/69 168/67 H 125/74 Pulse Oximetry 96 99 98 Oxygen Delivery 01/24/24 20:00 01/25/24 00:00 01/25/24 04:00 Temperature Pulse Rate 89 66 68 Respiratory Rate Blood Pressure Pulse Oximetry Oxygen Delivery 01/25/24 05:50 01/25/24 09:00 Temperature 36.6 C Pulse Rate 88 Respiratory Rate 16 Blood Pressure 142/75 H Pulse Oximetry 97 Oxygen Delivery Room Air Intake/Output Intake/Output: Intake & Output 01/22/24 01/23/24 01/24/24 01/25/24 23:59 23:59 23:59 23:59 Intake Total 1718.9 200 Output Total 1200 Balance 518.9 200 Meds/Results Medications: Active Medications Generic Name Dose Route Start Last Admin Trade Name Freq PRN Reason Stop Dose Admin Acetaminophen 650 mg 01/23/24 21:15 Acetaminophen 325 Mg Tablet PO Q6H PRN Mild Pain (1-3) or Fever Heparin Sodium (Porcine) 5,000 units 01/25/24 07:50 Heparin Sodium 5,000 Units/Ml Vial IV PUSH PRN PRN aPTT less than 55 seconds Heparin Sodium (Porcine) 2,500 units 01/25/24 07:50 Heparin Sodium 5,000 Units/Ml Vial IV PUSH PRN PRN aPTT 55 - 70 seconds Heparin Sodium/Dextrose 25,000 units in 250 mls @ 12 mls/hr 01/25/24 07:50 01/25/24 08:53 Heparin Sodium/D5w 100 Units/Ml IV CONT 1,200 units/hr .[id number] ANTHONY 12 mls/hr Administration Protocol 1,200 UNITS/HR Pantoprazole Sodium 40 mg 01/24/24 09:00 01/25/24 08:53 Pantoprazole 40 Mg Tablet PO Not Given QAM [facility] Radiology Results: ITS Impressions Head CT 01/23/24 13:53 Impression: No intracranial hemorrhage, mass, or acute infarct. Atrophy and chronic white matter changes, as above. Soft tissue swelling at the high frontal scalp. Hand X-Ray 01/23/24 13:55 Impression: Unremarkable left hand. Head/Cervical Spine/Facial Bones CT 01/23/24 14:04 Impression: No fracture is seen in the facial bones. No fracture or subluxation of the cervical spine. 6 mm right apical pulmonary nodule, likely focal scarring. Consider follow-up CT as indicated. Venous Doppler Study 01/23/24 14:21 IMPRESSION: 1: Extensive deep venous thrombosis of the left lower extremity veins. Labs Labs: Laboratory Results - last 24 hr 01/25/24 08:05 WBC 9.3 RBC 4.23 Hgb 12.7 Hct 39.8 MCV 94.1 MCH 30.0 MCHC 31.9 L RDW 16.4 H Plt Count 291 MPV 8.5 Immature Gran % (Auto) 0.6 H Neut % (Auto) 71.3 Lymph % (A
[2024-01-25] MEDS: ACETAMINOPHEN 325 MG TABLET 650 MG PO (10:48)
--- NOTE | 2024-01-25 11:56 | PCPTNOTE ---
Attempted PT evaluation, but patient refuses all objective measurements stating she is fine and all we are doing is holding her here until after her brother's wedding at 300.
--- NOTE | 2024-01-25 11:57 | PCOTNOTE ---
The patient occupational therapy evaluation was not able to be completed on 01/24 due to patient refusing to be assessed. Will plan to evaluate patient when agreeable.
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
[2024-01-25 15:14] LABS: SARS-CoV-2 RNA PCR Negative (Negative)
[2024-01-25 16:04] VITALS: BP 151/86; PULSE 100; RESP 16; TEMP 36.9; O2SAT 97
== END 2024-01-25 16:07 | disposition hospice, home (50) ==
LOC: ANHED 16:35 → ANH2MED 18:50
PROVIDERS: Internal Medicine; Nurse Practitioner Acute Care; Physician Assistant; Student in an Organized Health Care Education/Training Program; Admitting Provider Internal Medicine; Emergency Provider Emergency Medicine; PCP Internal Medicine; Visit Provider Internal Medicine
DX: I82.512 Chronic embolism and thrombosis of left femoral vein (principal); S09.90XA Unspecified injury of head, initial encounter; R29.6 Repeated falls; F03.90 Unspecified dementia, unspecified severity, without behavioral disturbance, psychotic disturbance, mood disturbance, and anxiety; Z87.891 Personal history of nicotine dependence; W19.XXXA Unspecified fall, initial encounter; Z79.01 Long term (current) use of anticoagulants; Z11.52 Encounter for screening for COVID-19; Z79.899 Other long term (current) drug therapy
CPT/HCPCS: 36415; 70450; 70486; 72125; 73130; 80048; 80053; 80307; 81001; 82140; 82550; 82607; 82803; 83605; 83735; 84443; 85025; 85610; 85730; 87635; 93971; 96365; 96366; 99285; A9270; G0378; J1644; L0140